=== PATIENT | female | born 1945 | race Caucasian/White ===

== ENCOUNTER 2019-01-13 18:54 | Emergency (ER) | payer MEDICARE ==
--- NOTE | 2019-01-13 19:54 | CT ---
CT BRAIN NONCONTRAST: DATE: 01/13/2019 HISTORY: 73-year-old female on anticoagulation therapy status post acute head trauma from fall. FINDINGS: There is no evidence of acute intra-axial or extra-axial hemorrhage. There is no midline shift or any other mass effect. There is no extra-axial fluid collection. Ventricles are dilated on an ex vacuo basis due to the diffuse brain atrophy. There is no evidence of obstructive hydrocephalus. Calvarium is intact. There is diffuse brain parenchymal volume loss. There are low attenuation areas in the white matter. These are nonspecific, but in a patient of this age, they are probably chronic ischemic white matter changes due to microvascular atherosclerosis. There are small old lacunar infarctions of the anterior limbs of bilateral internal capsules and adjacent basal ganglia, and left caudate hea d. IMPRESSION: 1) No acute intracranial findings. 2) advanced involutional changes and chronic ischemic white matter changes. 3) small old lacunar infarctions of bilateral corpus striatum.
[2019-01-13 20:22] LABS: #Eosinphils 0.1 thou/uL (0.0-0.7); #Lymphocytes 1.6 thou/uL (1.20-3.40); #Monocytes 0.6 thou/uL (0.11-0.59); #Neutrophils 6.5 thou/uL (1.40-6.50); %Basophils 0.5 % (0.0-1.0); %Eosinophils 1.2 % (0.0-10.0); %Lymphocytes 17.7 % (21.0-51.0); %Monocytes 6.9 % (0.0-10.0); %Neutrophils 73.8 % (42.0-75.0); Hemoglobin 11.7 g/dL (12.0-16.0); Mean Corpuscular Hemoglobin 30.5 pg (27.0-31.0); Mean Corpuscular Volume 92.5 fL (78.0-98.0); Mean Platelet Volume 7.5 fL (7.4-10.4); Platelet Count 281 thou/uL (130-400); RBC Distribution Width 12.7 % (11.5-14.5); Red Blood Cell (RBC) Count 3.82 mill/uL (4.20-5.40); White Blood Cell (WBC) Count 8.8 thou/uL (4.8-10.8)
[2019-01-13 20:42] LABS: ALT (SGPT) Less than 7 U/L (8-55); AST (SGOT) 9 U/L (5-34); Albumin 3.6 g/dL (3.4-4.8); Alkaline Phosphatase 105 U/L (40-110); Anion Gap 10 mmol/L (10-20); BUN (Urea Nitrogen) 25 mg/dL (9.8-20.1); Bilirubin, Total 0.2 mg/dL (0.2-1.2); Calc. Creatinine Clearance 0 mL/min (70-130); Carbon Dioxide 28 mmol/L (23-31); Chloride 105 mmol/L (98-107); Estimated GFR-MDRD 52; Globulin 2.5 g/dL (2.4-3.5); Glucose 204 mg/dL (83-110); Potassium 3.6 mmol/L (3.5-5.1); Protein, Total 6.1 g/dL (6.0-8.3); Sodium 139 mmol/L (136-145)
== END 2019-01-13 21:05 | disposition home or self-care (01) ==
LOC: ERS 18:54
DX: Z04.3 Encounter for examination and observation following other accident (principal); E11.9 Type 2 diabetes mellitus without complications; I10 Essential (primary) hypertension; E78.00 Pure hypercholesterolemia, unspecified; F03.90 Unspecified dementia, unspecified severity, without behavioral disturbance, psychotic disturbance, mood disturbance, and anxiety; Z79.899 Other long term (current) drug therapy; Z79.01 Long term (current) use of anticoagulants; W19.XXXA Unspecified fall, initial encounter
CPT/HCPCS: 36415; 70450; 80053; 85025; 93005

== ENCOUNTER 2019-01-24 21:46 | Emergency (ER) | payer MEDICARE ==
[2019-01-24 22:36] LABS: Bacteria/HPF None Seen HPF (None Seen); Bilirubin Negative (Negative); Blood, Urine Trace (Negative); Clarity Clear (Clear); Glucose, Urine (Dipstick) Normal (Negative); Leukocyte Negative Leu/uL (Negative); Nitrite Negative (Negative); Protein, Urine (Dipstick) 10 mg/dL (Neg-Trace); Squamous Epithelial 0-3 HPF (0-3); Urobilinogen Normal mg/dL (Less than 2)
[2019-01-24 22:48] LABS: #Basophils 0.1 thou/uL (0.0-0.2); #Eosinphils 0.1 thou/uL (0.0-0.7); #Lymphocytes 2.4 thou/uL (1.20-3.40); #Monocytes 1.2 thou/uL (0.11-0.59); #Neutrophils 12.7 thou/uL (1.40-6.50); %Basophils 0.4 % (0.0-1.0); %Eosinophils 0.8 % (0.0-10.0); %Lymphocytes 14.4 % (21.0-51.0); %Monocytes 7.3 % (0.0-10.0); %Neutrophils 77.1 % (42.0-75.0); Hemoglobin 12.8 g/dL (12.0-16.0); Mean Corpuscular HGB CONC 33.4 g/dL (32.0-36.0); Mean Corpuscular Hemoglobin 30.8 pg (27.0-31.0); Mean Corpuscular Volume 92.3 fL (78.0-98.0); Mean Platelet Volume 7.5 fL (7.4-10.4); Platelet Count 250 thou/uL (130-400); RBC Distribution Width 12.7 % (11.5-14.5); Red Blood Cell (RBC) Count 4.14 mill/uL (4.20-5.40); White Blood Cell (WBC) Count 16.5 thou/uL (4.8-10.8)
--- NOTE | 2019-01-24 22:49 | RAD ---
Exam: Right hip 2 views: HISTORY: Injury from an unwitnessed fall FINDINGS: Right hip compression screw in place. Significant bony demineralization. No evidence for dislocation. No evidence for acute fracture. Arthrosis changes. IMPRESSION: No evidence for acute fracture. Compression screws stabilize the right hip.
[2019-01-24 22:56] LABS: INR-International Normal Ratio 1.1; PTT 27.8 SEC (22.9-36.1); Prothrombin Time 13.7 SEC (12.0-14.7)
--- NOTE | 2019-01-24 22:56 | CT ---
EXAM: Brain CT scan Without contrast: HISTORY: Injury from a fall COMPARISON: 01/13/2019 FINDINGS: Small old lacunar infarcts. Atrophy and chronic white matter ischemic change. No focal mass or midline shift. No intra or extra-axial hemorrhage. The visualized sinuses and mastoids are clear of acute process. IMPRESSION: No mass or bleed or other significant acute intracranial process.
--- NOTE | 2019-01-24 22:59 | CT ---
EXAM: CT scan cervical spineWithout contrast: HISTORY: Injury from a fall COMPARISON: None FINDINGS: No evidence for acute fracture or facet dislocation. No significant malalignment. No prevertebral soft tissue swelling. Disc osteophytosis at C5-C6 and C6-C7. Bilateral carotid and vertebral artery prominent vascular calc ification. IMPRESSION: No evidence for acute fracture or facet dislocation or other significant acute process.
[2019-01-24 23:10] LABS: ALT (SGPT) 8 U/L (8-55); AST (SGOT) 12 U/L (5-34); Albumin 4.1 g/dL (3.4-4.8); Alkaline Phosphatase 131 U/L (40-110); Anion Gap 13 mmol/L (10-20); BUN (Urea Nitrogen) 28 mg/dL (9.8-20.1); Bilirubin, Total 0.2 mg/dL (0.2-1.2); Calc. Creatinine Clearance 0 mL/min (70-130); Calcium 9.6 mg/dL (7.8-10.44); Carbon Dioxide 28 mmol/L (23-31); Chloride 104 mmol/L (98-107); Estimated GFR-MDRD 48; Globulin 2.7 g/dL (2.4-3.5); Glucose 135 mg/dL (83-110); Potassium 3.9 mmol/L (3.5-5.1); Protein, Total 6.8 g/dL (6.0-8.3); Sodium 141 mmol/L (136-145)
[2019-01-24 23:27] LABS: CKMB 1.2 ng/mL (0-6.6)
--- NOTE | 2019-01-25 00:05 | RAD ---
EXAM: Chest one view: HISTORY: Injury from a fall COMPARISON: 11/13/2018 FINDINGS: Atherosclerosis of the aorta and chronic lung changes with old granulomatous disease. Bony demineralization. Healed-healing left rib fractures. Heart size: Within normal limits. Lungs: Clear of acute process. No evidence for pneumonia, pleural effusion, acute edema, or pneumothorax, or other significant acute process. IMPRESSION: No significant acute intrathoracic disease.
== END 2019-01-25 00:52 ==
LOC: ERS 21:46
DX: M25.551 Pain in right hip (principal); I10 Essential (primary) hypertension; E11.9 Type 2 diabetes mellitus without complications; E78.00 Pure hypercholesterolemia, unspecified; F03.90 Unspecified dementia, unspecified severity, without behavioral disturbance, psychotic disturbance, mood disturbance, and anxiety; Z79.01 Long term (current) use of anticoagulants; Z79.899 Other long term (current) drug therapy; W19.XXXA Unspecified fall, initial encounter
CPT/HCPCS: 36415; 51701; 70450; 71045; 72125; 80053; 81003; 81015; 82553; 84484; 85025; 85610; 85730; 93005; A4353

== ENCOUNTER 2019-03-25 20:15 | Inpatient (IN) | payer MEDICARE ==
[~2019-03-25 20:15] MED LIST: Iopamidol-370 76% 500 ML 1 ML ONE
--- NOTE | 2019-03-25 21:13 | RAD ---
EXAM: XR Hip Lt 2-3 View PROVIDED CLINICAL HISTORY: Pain status post injury COMPARISON: None FINDINGS: Comminuted, displaced intertrochanteric left proximal femoral fracture. Femoral-acetabular relationsh ip appears maintained. IMPRESSION: Comminuted, displaced intertrochanteric left proximal femoral fracture.
--- NOTE | 2019-03-25 21:14 | RAD ---
EXAM: Portable chest PROVIDED CLINICAL HISTORY: Preop COMPARISON: 01/24/2019 FINDINGS: Cardiac and mediastinal silhouette is stable in appearance. No focal consolidation, pleural fluid or pneumothorax evident with limitations due to the supine nature of the study. Conspicuous vascular calcification is again noted. IMPRESSION: No evidence for an acute cardiopulmonary process.
[2019-03-25 21:21] LABS: Mean Corpuscular Volume 88.1 fL (78.0-98.0)
[2019-03-25 21:33] LABS: INR-International Normal Ratio 1.2; PTT 30.3 SEC (22.9-36.1); Prothrombin Time 15.5 SEC (12.0-14.7)
[2019-03-25 21:33] LABS: #Eosinphils 0.2 thou/uL (0.0-0.7); #Lymphocytes 1.7 thou/uL (1.20-3.40); #Monocytes 0.7 thou/uL (0.11-0.59); #Neutrophils 9.8 thou/uL (1.40-6.50); %Basophils 0.2 % (0.0-1.0); %Eosinophils 1.5 % (0.0-10.0); %Lymphocytes 13.4 % (21.0-51.0); %Monocytes 5.6 % (0.0-10.0); %Neutrophils 79.3 % (42.0-75.0); Hemoglobin 11.6 g/dL (12.0-16.0); MDiff Complete? YES; Mean Corpuscular Hemoglobin 29.1 pg (27.0-31.0); Mean Platelet Volume 8.7 fL (7.4-10.4); Platelet Clumps SLIGHT; Platelet Morphology Comment PLT clumps seen-ADEQ; RBC Distribution Width 12.9 % (11.5-14.5); Red Blood Cell (RBC) Count 3.99 mill/uL (4.20-5.40); White Blood Cell (WBC) Count 12.4 thou/uL (4.8-10.8)
[2019-03-25] MEDS ORDERED: Morphine 4 MG/ML VIAL ONE (21:34)
[2019-03-25] MEDS ORDERED: Ondansetron PF 4 MG/2 ML Vial ONE (21:34)
[2019-03-25 21:36] LABS: ALT (SGPT) 8 U/L (8-55); AST (SGOT) 13 U/L (5-34); Albumin 3.7 g/dL (3.4-4.8); Alkaline Phosphatase 99 U/L (40-110); Anion Gap 12 mmol/L (10-20); BUN (Urea Nitrogen) 28 mg/dL (9.8-20.1); Bilirubin, Total 0.3 mg/dL (0.2-1.2); Calc. Creatinine Clearance 0 mL/min (70-130); Carbon Dioxide 27 mmol/L (23-31); Chloride 102 mmol/L (98-107); Estimated GFR-MDRD 51; Globulin 2.8 g/dL (2.4-3.5); Glucose 234 mg/dL (83-110); Potassium 4.1 mmol/L (3.5-5.1); Protein, Total 6.5 g/dL (6.0-8.3); Sodium 137 mmol/L (136-145)
--- NOTE | 2019-03-25 22:30 | CT ---
Exam: CT brain PROVIDED CLINICAL HISTORY: Fall COMPARISON: 01/24/2019 FINDINGS: The ventricular system is normal in size and morphology. No evidence for intracranial hemorrhage or mass effect. The extracranial soft tissues and osseous structures demonstrate no evidence for an acute abnormality. Chronic microvascular ischemic changes involving the cerebral white matter redemon strated. Vascular calcifications are seen. IMPRESSION: No evidence for intracranial hemorrhage or mass effect.
[2019-03-25 22:34] LABS: Bacteria/HPF None Seen HPF (None Seen); Bilirubin Negative (Negative); Blood, Urine Negative (Negative); Clarity Turbid (Clear); Glucose, Urine (Dipstick) 150 mg/dL (Negative); Leukocyte Negative Leu/uL (Negative); Nitrite Negative (Negative); Protein, Urine (Dipstick) 30 mg/dL (Neg-Trace); RBC/HPF 0-3 HPF (0-3); Squamous Epithelial 0-3 HPF (0-3); Urobilinogen Normal mg/dL (Less than 2); WBC/HPF 0-3 HPF (0-3)
--- NOTE | 2019-03-25 22:41 | CT ---
EXAM: CT abdomen and pelvis with IV contrast PROVIDED CLINICAL HISTORY: Abdominal bruising COMPARISON: None FINDINGS: The visualized lung bases are free of significant opacity. The solid abdominal organs demonstrate an unremarkable CT appearance. There is no bowel dilatation, inflammatory fat stranding, free fluid or free air apparent. There is n o evidence for appendicitis. Cazares catheter in the bladder. No regional lymph node enlargement apparent. Conspicuous multifocal atherosclerotic vascular calcific ation. Comminuted, displaced intertrochanteric left proximal femoral fracture. Postoperative change involving right hip. Remote, ununited inferior pubic ramus fracture on the right. Coronal and sagitta l spine reconstructions demonstrate no evidence for fracture or traumatic subluxation involving the lumbar spine. IMPRESSION: No evidence for an acute abnormality involving the abdomen and pelvis. Known left hip fracture.
[2019-03-26] MEDS ORDERED: Dextrose 5% in Water 1,000 ML IV PRN (00:25)
[2019-03-26] MEDS ORDERED: Dextrose 50% Abboject 50 ML SYRINGE SLOW IVP PRN (00:25)
[2019-03-26] MEDS ORDERED: Ondansetron PF 4 MG/2 ML Vial IVP PRN (00:25)
--- NOTE | 2019-03-26 01:24 | HP ---
HISTORY OF PRESENT ILLNESS: Ms. Isaacs is a 73-year-old female, who came into the ED for evaluation of left hip pain after a fall in her [facility] home. The patient has history of severe dementia and she got up by herself, lost balance and fell on her left thigh. Due to dementia, the patient is a poor historian. Report from family that patient most likely lost her balance and fell, unwitnessed. The patient has a history of atrial fibrillation, for which she uses Eliquis 5 mg every day. Upon arrival, the patient's mental status is at her baseline. Vital signs stable. She is able to move all 4 extremities. REVIEW OF SYSTEMS: Noncontributory except per HPI. PAST MEDICAL HISTORY: She has a history of diabetes, hypertension, dementia, chronic anemia, atrial fibrillation. PAST SURGICAL HISTORY: Right hip repair, right hip fixation. SOCIAL HISTORY: The patient lives in custodial. Family reports no alcohol use, no drug use. No smoking history. PHYSICAL EXAMINATION: GENERAL: The patient lying down in bed with mental status consistent with her baseline. She follow commands, wax and wanes. She is able to move all 4 extremities. No acute respiratory distress. VITAL SIGNS: Heart rate 93, blood pressure 164/81, respiratory rate 16, O2 saturation 97% on 2 L cannula, temperature 97.8. HEENT: Atraumatic. No bruising. No tender to palpation. NECK: Trachea midline. No tender to palpation. CHEST: Symmetrical. No bruising. No tender to palpation. LUNGS: Clear bilaterally. HEART: Irregular rate, irregular rhythm. ABDOMEN: Soft, nondistended, bruising and contusion of the left abdominal wall. PELVIS: Stable. EXTREMITIES: Patient able to move all extremities. Difficult to test sensation due to the patient's mental status. NEUROLOGY: Difficult testing due to patient's current altered mental status due to dementia. LABORATORY DATA: Initial workup show CT of abdomen and pelvis, no evidence for acute abdominal involvement. Brain CT scan, no evidence for intracranial hemorrhage or mass effect. Left hip x-ray shows comminuted, displaced intertrochanteric left proximal femur fracture, femoral acetabular relationship appear maintained. Chest x-ray, no evidence for acute cardiopulmonary process. Sodium 137, potassium 4.1, creatinine 1.05, glucose 234. White count 12.4, hemoglobin 11.6. ASSESSMENT: 1. Status post ground level fall. 2. Left hip fracture. 3. History of atrial fibrillation, on Eliquis 5 mg a day. 4. History of diabetes. 5. Hypertension. 6. Right knee fixation. 7. Severe dementia. PLAN: The patient will be admitted to [place] [id number] for pain control. Initiate non-pharmacological DVT prophylaxis, gastritis prophylaxis. Orthopedics was contacted. Patient will be most likely will need to hold on Eliquis for few days before she can go to the OR. Postop, the patient will work with PT/OT and the patient anticipate placement in rehabilitation facility. Job ID: [id number]
[2019-03-26] MEDS: Sodium Chloride 0.9% 1,000 ML IV SCH ×3 (05:19→19:56)
[2019-03-26] MEDS: Nicotine 7 MG PATCH TD SCH (05:19)
[2019-03-26] MEDS: Acetaminophen 500 MG TAB PO SCH ×4 (05:19→23:01)
[2019-03-26] MEDS ORDERED: Simvastatin 20 MG TAB PO SCH (09:00)
--- NOTE | 2019-03-26 09:10 | CON ---
DATE OF CONSULTATION: CHIEF COMPLAINT: Left hip pain. HISTORY OF PRESENT ILLNESS: Ms. Isaacs is a 73-year-old female, who lives in a nursing facility, [facility]. She fell yesterday evening. She got up and out of bed by herself. She has severe dementia. She does not ambulate much. She is mostly in a wheelchair. Her fall occurred in the nursing facility. She had pain in her left hip. She was taken to the emergency department. X-rays were obtained, which demonstrated a left proximal femur fracture. Of note, the patient does take Eliquis for atrial fibrillation. Her is at the bedside. She has had a previous right hip fracture, which healed without complication per family reports. REVIEW OF SYSTEMS: Positive for left hip pain. Otherwise, negative 10-point review of systems. PAST MEDICAL HISTORY: Diabetes, hypertension, dementia, chronic anemia, and atrial fibrillation. PAST SURGICAL HISTORY: Previous right femur intertrochanteric fracture. SOCIAL HISTORY: The patient lives at [facility]. She uses a walker minimally, but mostly uses a wheelchair at this point. No tobacco, alcohol, or drug use. PHYSICAL EXAMINATION: VITAL SIGNS: Temperature is 98.5, pulse is 91, respiratory rate is 20, oxygen saturation 94%, and blood pressure is 149/97. GENERAL: The patient is disoriented. She does not answer questions appropriately. She does arouse to stimulation. answers questions at the bedside. HEENT: Normocephalic, atraumatic. RESPIRATORY: Breathing comfortably. ABDOMEN: Soft, nontender, and nondistended. MUSCULOSKELETAL: The patient's left lower extremity has some shortening and pain with motion. She is lying in an externally-rotated position. Her right lower extremity is atraumatic. Upper extremities are atraumatic. Neurovascularly intact distally. IMAGING DATA: X-rays of the left hip demonstrate an intertrochanteric femur fracture with subtrochanteric extension. There is some shortening and varus alignment. IMPRESSION: Left intertrochanteric femur fracture. PLAN: At this point, the patient will need to go to the operating room for stabilization of her femur. I have reviewed other options with the patient and her family including nonoperative management. The patient minimally ambulates, so this would be an option. However, she likely would have more pain and difficulty with activities such as hygiene if her femur is not stabilized. At this point, her would like us to proceed with surgical intervention. She will be n.p.o. at midnight tonight. She will have adequate pain control. She will have DVT prophylaxis. She has an elevated risk of complication given her advanced age, dementia and medical comorbidities. We cannot proceed with surgery today because she is on Eliquis and needs an additional 24 hours off this medication. All questions have been answered. Job ID: [id number]
[2019-03-26] MEDS: Lisinopril 20 MG TAB PO SCH (09:12)
[2019-03-26] MEDS: Famotidine 20 MG TAB PO SCH (09:12)
[2019-03-26] MEDS: Gabapentin 100 MG CAP PO SCH ×3 (09:12→19:57)
[2019-03-26] MEDS: Senokot S 8.6-50 MG TAB PO SCH ×2 (09:12→19:57)
[2019-03-26] MEDS: Polyethylene Glycol 3350 17 GM Packet PO SCH (09:12)
--- NOTE | 2019-03-26 11:25 | RAD ---
Exam:2 views left femur HISTORY: Fall. Trauma. Fracture. COMPARISON: None FINDINGS: Comminuted intratrochanteric fracture with associated angulation. Bone demineralization. Vascular calcifications. IMPRESSION: Intertrochanteric fracture.
[2019-03-26] MEDS: HumaLOG 300 UNITS/3 ML VIAL SC PRN (13:35)
--- NOTE | 2019-03-26 15:21 | PRG ---
DATE OF SERVICE: 03/26/2019 SUBJECTIVE: The patient is currently on the surgical floor. She was admitted last night, status post ground level fall at her longterm facility. She has a history of significant dementia and is also on Eliquis for atrial fibrillation. Due to her Eliquis, she is unable to undergo her procedure for her left hip fracture today, but it is currently scheduled for tomorrow. Overnight, the patient reportedly had no issues. Her pain was controlled. She was able to tolerate a full liquid diet. OBJECTIVE: VITAL SIGNS: Temperature is 98.9, heart rate 91, blood pressure 186/81, respirations 16, and oxygen saturation 92% on room air. GENERAL: The patient is resting comfortably in bed. She is awake and appears to answer simple questions and follows simple commands. HEENT: Unremarkable. LUNGS: Clear bilaterally. HEART: Regular rate, irregular rhythm consistent with her atrial fibrillation. ABDOMEN: Soft and nontender. EXTREMITIES: Neurovascularly intact x4. LABORATORY DATA: There are no labs or radiographs reviewed this morning. ASSESSMENT/PLAN: 1. Status post ground level fall. 2. Left hip fracture. 3. History of atrial fibrillation, on Eliquis. 4. History of diabetes. 5. History of hypertension. 6. History of right knee fixation. 7. Severe dementia. PLAN: Plan will be to continue supportive care and make the patient n.p.o. after midnight. Postoperatively, we will begin physical and occupational therapy and discuss placement with family at that time. Job ID: [id number]
[2019-03-26] MEDS: Atorvastatin Calcium 10 MG TAB PO SCH (19:57)
[2019-03-26] MEDS ORDERED: Prevnar 13-Val Conj/PF 0.5 ML SYRINGE IM ONE (21:00)
[2019-03-26] MEDS ORDERED: FLU VACC TS2019-20(65YR UP)/PF 180 MCG/0.5 ML SYRINGE IM ONE (21:00)
[2019-03-27] MEDS: hydrALAZINE 20 MG/ML VIAL SLOW IVP PRN (03:44)
[2019-03-27] MEDS: Acetaminophen 500 MG TAB PO SCH (05:16)
[2019-03-27] MEDS: Nicotine 7 MG PATCH TD SCH (05:16)
[2019-03-27] MEDS: traMADol HCl 50 MG TAB PO PRN (05:33)
[2019-03-27] MEDS ORDERED: Phenylephrine HCL 10 MG/ML VIAL ONE (08:01)
[2019-03-27] MEDS ORDERED: Fentanyl 100 MCG/2 ML VIAL ONE (08:13)
[2019-03-27] MEDS: Famotidine 20 MG TAB PO SCH (09:04)
[2019-03-27] MEDS: CEFAZOLIN 2 GM in Premix Bag 1 BAG IVPB SCH ×3 (09:04→15:45)
[2019-03-27] MEDS: Senokot S 8.6-50 MG TAB PO SCH ×2 (09:05→20:35)
[2019-03-27] MEDS: Polyethylene Glycol 3350 17 GM Packet PO SCH (09:05)
[2019-03-27] MEDS: Lisinopril 20 MG TAB PO SCH (09:05)
[2019-03-27] MEDS: Gabapentin 100 MG CAP PO SCH ×3 (09:05→20:35)
[2019-03-27] MEDS ORDERED: Ondansetron HCl/PF 4 MG/2 ML Vial IVP PRN (09:11)
[2019-03-27] MEDS ORDERED: Promethazine HCl 25 MG/ML VIAL SLOW IVP PRN (09:11)
[2019-03-27] MEDS ORDERED: Promethazine HCl 25 MG/ML VIAL IM PRN (09:11)
[2019-03-27] MEDS ORDERED: PROPOFOL 200 MG/20 ML VIAL ONE (10:36)
[2019-03-27] MEDS ORDERED: Rocuronium Bromide 10 MG/ML (10ML VIAL) ONE (10:36)
[2019-03-27] MEDS ORDERED: Ondansetron PF 4 MG/2 ML Vial ONE (10:36)
[2019-03-27] MEDS ORDERED: Lidocaine 1% PF 5 ML VIAL ONE (10:36)
[2019-03-27] MEDS ORDERED: Glycopyrrolate 0.2 MG/ML 5 ML SYRINGE ONE (10:36)
--- NOTE | 2019-03-27 11:40 | RAD ---
Exam: Left hip 2 views: HISTORY: Status post ORIF, left intertrochanteric nail placement FINDINGS: Intertrochanteric nail is placed stabilizing an intertrochanteric fracture with improved position and alignment. No new periprostatic fracture. IMPRESSION: Intraoperative nail placement fixating intertrochanteric fracture.
[2019-03-27] MEDS: Acetaminophen 1,000 MG in Premix Bag 1 BAG IVPB SCH ×3 (12:03→23:24)
[2019-03-27] MEDS: HumaLOG 300 UNITS/3 ML VIAL SC PRN ×3 (12:04→20:41)
[2019-03-27 14:30] LABS: #Lymphocytes 1.6 thou/uL (1.20-3.40); #Monocytes 1.4 thou/uL (0.11-0.59); #Neutrophils 9.1 thou/uL (1.40-6.50); %Basophils 0.3 % (0.0-1.0); %Lymphocytes 12.9 % (21.0-51.0); %Monocytes 11.4 % (0.0-10.0); %Neutrophils 75.3 % (42.0-75.0); Hemoglobin 9.2 g/dL (12.0-16.0); Mean Corpuscular HGB CONC 33.2 g/dL (32.0-36.0); Mean Corpuscular Hemoglobin 29.7 pg (27.0-31.0); Mean Corpuscular Volume 89.3 fL (78.0-98.0); RBC Distribution Width 13.3 % (11.5-14.5); White Blood Cell (WBC) Count 12.1 thou/uL (4.8-10.8)
[2019-03-27 14:42] LABS: MDiff Complete? YES; Platelet Clumps MODERATE; Platelet Morphology Comment PLT clumps seen-ADEQ; Polychromasia SLIGHT = 2-3 cells (100X) (0-2/hpf)
[2019-03-27 14:49] LABS: Anion Gap 14 mmol/L (10-20); BUN (Urea Nitrogen) 13 mg/dL (9.8-20.1); Calc. Creatinine Clearance 50 mL/min (70-130); Calcium 8.3 mg/dL (7.8-10.44); Carbon Dioxide 25 mmol/L (23-31); Chloride 103 mmol/L (98-107); Estimated GFR-MDRD 72; Glucose 99 mg/dL (83-110); Magnesium 1.6 mg/dL (1.6-2.6); Phosphorus 2.8 mg/dL (2.3-4.7); Potassium 3.5 mmol/L (3.5-5.1); Sodium 138 mmol/L (136-145)
[2019-03-27] MEDS: Ketorolac Tromethamine 30 MG/ML VIAL IVP SCH ×3 (17:52→23:25)
[2019-03-27] MEDS: Sodium Chloride 0.9% 1,000 ML IV SCH (17:53)
[2019-03-27] MEDS: Atorvastatin Calcium 10 MG TAB PO SCH (20:35)
[2019-03-27] MEDS ORDERED: Gabapentin 300 MG CAP PO SCH (22:40)
--- NOTE | 2019-03-27 23:07 | PRG ---
DATE OF SERVICE: 03/27/2019 SUBJECTIVE: The patient remains on the surgical floor. The patient was seen this evening during evening rounds, resting comfortably. The patient does have a history of significant dementia. The patient's daughter states that she was agitated earlier with her diaper change. The nurse also reports the patient has had a decreased intake and has only been eating about 25% of her meals. The patient is postop day #0 for repair of her left hip fracture. OBJECTIVE: VITAL SIGNS: Stable, afebrile. GENERAL: Elderly female, resting comfortably in bed, sleeping, in no respiratory distress. LUNGS: Good inspiratory and expiratory effort. No acute distress. ASSESSMENT: 1. Status post ground level fall. 2. Left hip fracture postop day #0, status post repair. 3. History of atrial fibrillation, on Eliquis. 4. History of diabetes. 5. Hypertension. 6. Right knee fixation. 7. Severe dementia. PLAN: Continue supportive care. We will add Ensure to patient's diet as she has not been eating much. We will continue IV fluids overnight as the patient has not drinking much either. We will have Physical Therapy work with the patient tomorrow. Job ID: [id number] [facility]
[2019-03-28] MEDS: CEFAZOLIN 2 GM in Premix Bag 1 BAG IVPB SCH ×4 (00:12→16:36)
[2019-03-28] MEDS: Acetaminophen 1,000 MG in Premix Bag 1 BAG IVPB SCH ×2 (05:23→11:46)
[2019-03-28] MEDS: Sodium Chloride 0.9% 1,000 ML IV SCH ×2 (05:23→16:39)
[2019-03-28] MEDS: Ketorolac Tromethamine 30 MG/ML VIAL IVP SCH (05:23)
[2019-03-28] MEDS: Nicotine 7 MG PATCH TD SCH (05:33)
[2019-03-28] MEDS: HumaLOG 300 UNITS/3 ML VIAL SC PRN ×3 (06:30→16:36)
[2019-03-28 06:35] LABS: #Basophils 0.1 thou/uL (0.0-0.2); #Eosinphils 0.1 thou/uL (0.0-0.7); #Lymphocytes 1.4 thou/uL (1.20-3.40); #Monocytes 0.9 thou/uL (0.11-0.59); #Neutrophils 6.1 thou/uL (1.40-6.50); %Basophils 0.8 % (0.0-1.0); %Eosinophils 1.7 % (0.0-10.0); %Lymphocytes 16.1 % (21.0-51.0); %Monocytes 10.2 % (0.0-10.0); %Neutrophils 71.3 % (42.0-75.0); Hemoglobin 8.2 g/dL (12.0-16.0); MDiff Complete? YES; Mean Corpuscular HGB CONC 32.8 g/dL (32.0-36.0); Mean Corpuscular Hemoglobin 29.6 pg (27.0-31.0); Mean Corpuscular Volume 90.3 fL (78.0-98.0); Platelet Clumps MARKED; RBC Distribution Width 13.3 % (11.5-14.5); RBC Morphology Normal; Red Blood Cell (RBC) Count 2.78 mill/uL (4.20-5.40); White Blood Cell (WBC) Count 8.5 thou/uL (4.8-10.8)
[2019-03-28 06:48] LABS: Anion Gap 14 mmol/L (10-20); BUN (Urea Nitrogen) 16 mg/dL (9.8-20.1); Calc. Creatinine Clearance 44 mL/min (70-130); Calcium 8.2 mg/dL (7.8-10.44); Carbon Dioxide 21 mmol/L (23-31); Chloride 106 mmol/L (98-107); Estimated GFR-MDRD 62; Glucose 167 mg/dL (83-110); Magnesium 1.6 mg/dL (1.6-2.6); Phosphorus 4.1 mg/dL (2.3-4.7); Potassium 4.1 mmol/L (3.5-5.1); Sodium 137 mmol/L (136-145)
[2019-03-28] MEDS ORDERED: Magnesium Sulfate 3 GM in Sodium Chloride 0.9% 250 ML 250 ML IVPB SCH (07:45)
[2019-03-28] MEDS: Lisinopril 20 MG TAB PO SCH (08:44)
[2019-03-28] MEDS: Famotidine 20 MG TAB PO SCH (08:49)
[2019-03-28] MEDS: Senokot S 8.6-50 MG TAB PO SCH ×2 (08:49→20:06)
[2019-03-28] MEDS: Ferrous Sulfate 325 MG TAB PO SCH (08:50)
[2019-03-28] MEDS: Polyethylene Glycol 3350 17 GM Packet PO SCH (08:50)
[2019-03-28] MEDS: Amiodarone 200 MG TAB PO SCH ×2 (08:50→20:05)
--- NOTE | 2019-03-28 12:24 | PRG ---
DATE OF SERVICE: 03/28/2019 SUBJECTIVE: The patient remains on the surgical floor. She is status post ground level fall, in which she sustained a left hip fracture. She has undergone operative intervention of same. She tolerated it well. She did have a delay in her surgery due to being on Eliquis for atrial fibrillation. Overnight, she had no issues. This morning, she began working with Physical Therapy. OBJECTIVE: VITAL SIGNS: Temperature is 98.1, heart rate 76, blood pressure 105/68, respirations 16, and oxygen saturation 94% on room air. GENERAL: The patient is currently sitting at the side of bed. She appears comfortable, in no distress. She is following the therapist's commands and is interacting appropriately. HEENT: Unremarkable. LUNGS: Clear to auscultation bilaterally. HEART: Regular rate with irregular rhythm consistent with her atrial fibrillation. ABDOMEN: Soft, nontender. EXTREMITIES: Neurovascularly intact x4. Her postop dressing is clean, dry, and intact. LABORATORY FINDINGS: White blood cell count 8.5, hemoglobin 8.2, hematocrit 25.1, and platelets are not reported. Sodium 137, potassium 4.1, chloride 106, CO2 of 21, BUN 16, creatinine 0.89, glucose 167, magnesium 1.6, and phosphorus 4.1. IMAGING STUDIES: There are no radiographs reviewed this morning. ASSESSMENT AND PLAN: 1. Status post ground level fall. 2. Status post open reduction and internal fixation of left hip fracture. 3. History of atrial fibrillation, on Eliquis. 4. History of diabetes. 5. History of hypertension. 6. History of severe dementia. Plan will be to continue supportive care, encourage physical and occupational therapy, and discuss placement once family is available. We will replace her magnesium this morning also. Job ID: [id number]
[2019-03-28] MEDS ORDERED: Sodium Chloride 0.9% 500 ML IV SCH (12:30)
[2019-03-28] MEDS ORDERED: Hydrocortisone Sod Succ/PF 100 mg/2 ml Vial IVP SCH (16:30)
[2019-03-28] MEDS: Atorvastatin Calcium 10 MG TAB PO SCH (20:06)
[2019-03-29] MEDS: CEFAZOLIN 2 GM in Premix Bag 1 BAG IVPB SCH ×3 (00:20→15:36)
[2019-03-29] MEDS: Hydrocortisone Sod Succ/PF 100 mg/2 ml Vial IVP SCH ×3 (00:20→15:35)
[2019-03-29] MEDS ORDERED: Furosemide 20 MG/2 ML VIAL SLOW IVP SCH (04:45)
[2019-03-29 05:50] LABS: Band 1 % (5-11); Hemoglobin 9.6 g/dL (12.0-16.0); Hypochromia SLIGHT = 6-15 cells (100X) (0-5/hpf); Lymphocytes 4 % (21-51); MDiff Complete? YES; Mean Corpuscular HGB CONC 32.8 g/dL (32.0-36.0); Mean Corpuscular Hemoglobin 29.8 pg (27.0-31.0); Monocytes 2 % (0-10); Neutrophil 93 % (42-75); Platelet Clumps SLIGHT; RBC Distribution Width 13.3 % (11.5-14.5); Red Blood Cell (RBC) Count 3.22 mill/uL (4.20-5.40); White Blood Cell (WBC) Count 11.1 thou/uL (4.8-10.8)
[2019-03-29 05:57] LABS: Anion Gap 19 mmol/L (10-20); BUN (Urea Nitrogen) 24 mg/dL (9.8-20.1); Calc. Creatinine Clearance 33 mL/min (70-130); Calcium 8.7 mg/dL (7.8-10.44); Carbon Dioxide 17 mmol/L (23-31); Chloride 104 mmol/L (98-107); Estimated GFR-MDRD 45; Glucose 333 mg/dL (83-110); Magnesium 2.2 mg/dL (1.6-2.6); Potassium 4.2 mmol/L (3.5-5.1); Sodium 136 mmol/L (136-145)
[2019-03-29] MEDS: HumaLOG 300 UNITS/3 ML VIAL SC PRN ×4 (05:58→22:00)
[2019-03-29] MEDS: Nicotine 7 MG PATCH TD SCH (05:59)
[2019-03-29] MEDS: Polyethylene Glycol 3350 17 GM Packet PO SCH (08:59)
[2019-03-29] MEDS: Lisinopril 20 MG TAB PO SCH (09:00)
[2019-03-29] MEDS: Famotidine 20 MG TAB PO SCH (09:00)
[2019-03-29] MEDS: Apixaban 5 MG TAB PO SCH (09:00)
[2019-03-29] MEDS: Senokot S 8.6-50 MG TAB PO SCH ×2 (09:00→21:13)
[2019-03-29] MEDS: Ferrous Sulfate 325 MG TAB PO SCH (09:00)
[2019-03-29] MEDS: Amiodarone 200 MG TAB PO SCH ×2 (09:00→21:12)
--- NOTE | 2019-03-29 10:30 | PRG ---
DATE OF SERVICE: 03/29/2019 SUBJECTIVE: Stefany is a 73-year-old female, postop day 2 from a left trochanteric nail fixation for intertrochanteric fracture. She is doing relatively well, sitting up, visiting with family members this morning. OBJECTIVE: VITAL SIGNS: Temperature 98.3, pulse 84, and respiratory rate 18 and unlabored. NEUROLOGIC: She is alert, responsive and appropriate with examiner. Short-term memory is poor. Remote memory also poor secondary to dementia. Incision is clean. No malrotation. No shortening of the left lower extremity. No strike through. IMPRESSION: A 73-year-old female, postop day #2, left hip short trochanteric nail fixation for intertrochanteric fracture. PLAN: Continue current care and placement per Trauma Team. Job ID: [id number]
--- NOTE | 2019-03-29 11:20 | OP ---
DATE OF PROCEDURE: 03/27/2019 PREOPERATIVE DIAGNOSIS: A left intertrochanteric hip fracture. POSTOPERATIVE DIAGNOSIS: A left intertrochanteric hip fracture. LOAN INTERVIEWER: Denzel Samuel PA-C ANESTHESIOLOGIST: Edilia Tapia MD ANESTHESIA: The patient received a general endotracheal intubation. PROCEDURE PERFORMED: Cephalomedullary nailing of left intertrochanteric hip fracture. ESTIMATED BLOOD LOSS: 150 mL. TOURNIQUET TIME: None. IMPLANTS: Synthes TFNA size 12 mm x 170 mm, 90 mm compression TFNA fenestrated screw and a 5 mm distal locking screw, 5 x 34. ANTIBIOTICS: Ancef 2 g. COMPLICATIONS: None. HISTORY OF PRESENT ILLNESS: Ms. Isaacs is a 73-year-old female, who has currently dementia, had a recent fall and broke her right hip, had a DHS placed. I discussed with family, the risks and benefits of a left intertrochanteric nailing for her left hip fracture. I discussed given the patient's current mental status and her ambulatory status, I am concerned about her walking in the future. I am also concerned about her longevity of her life. I discussed the risk of confusion postoperatively. The patient will need transfer back to the skilled once cleared. She will be started on her Eliquis. The patient's risks are pain, scar, bleeding, infection, damage to vital structures, decreased range or motion or strength, need for further surgeries, failure of procedure despite surgical intervention, loss of life or limb. The patient's understands risks and benefits and elected to proceed. DESCRIPTION OF PROCEDURE: Time-out was performed designating the patient's left lower extremity as the operative site based on site, consents, and marking. The patient was placed on fracture table. Bony prominences well padded. The patient had her fracture reduced under fluoroscopic guidance. We then prepped and draped the left lower extremity After timeout, antibiotics received, the patient had an incision made over the trochanter, sectioned down through the IT band by dissection down to the trochanter. We used a guide pin, placed it under fluoroscopic guidance on the AP and lateral positions likely in the posterior 3rd. We then placed our nail, placed it to a size 12 nail, passed it down the length of bone, placed our center-center screw on AP and lateral radiographs, measured about 92, placed a 90 mm screw. We locked the gate and came off and half turned , moved distally, drilled bicortically, and placed a 34 mm 5-0 locking screw distally, washed, closed with 0, 2-0, and brett. The patient will be weightbear as tolerated, need transfer back and admitted back to the Trauma Service. Job ID: [id number] [facility]
[2019-03-29] MEDS: Furosemide 40 MG/4 ML VIAL ONE ×2 (12:47→13:10)
--- NOTE | 2019-03-29 13:05 | RAD ---
XR Chest 1 View Portable HISTORY: Shortness of breath COMPARISON: 03/25/2019 FINDINGS: The heart size is normal. The aorta is tortuous. There is been interval development of pulm onary vascular congestion. The lungs are well expanded without focal areas of consolidation, pneumothorax or large pleural effusions. IMPRESSION: Pulmonary vascular congestion, new since 03/25/2019.
[2019-03-29] MEDS ORDERED: Furosemide 40 MG/4 ML VIAL ONE (13:21)
[2019-03-29] MEDS ORDERED: Aspirin 81 mg Enteric Coated Tablet PO SCH (16:00)
[2019-03-29 16:48] LABS: Troponin I 3.928 ng/mL (< 0.028)
[2019-03-29 19:36] LABS: Troponin I 4.131 ng/mL (< 0.028)
[2019-03-29] MEDS: Atorvastatin Calcium 10 MG TAB PO SCH (21:13)
[2019-03-29] MEDS: traMADol HCl 50 MG TAB PO PRN (21:13)
[2019-03-29] MEDS: Melatonin 3 MG TAB PO PRN (21:14)
[2019-03-30] MEDS: Hydrocortisone Sod Succ/PF 100 mg/2 ml Vial IVP SCH ×3 (00:33→16:15)
[2019-03-30] MEDS: HumaLOG 300 UNITS/3 ML VIAL SC PRN ×3 (00:34→18:00)
[2019-03-30] MEDS: CEFAZOLIN 2 GM in Premix Bag 1 BAG IVPB SCH ×2 (00:35→07:58)
[2019-03-30 04:56] LABS: Hemoglobin 8.2 g/dL (12.0-16.0); Lymphocytes 9 % (21-51); MDiff Complete? YES; Mean Corpuscular HGB CONC 32.2 g/dL (32.0-36.0); Mean Corpuscular Hemoglobin 29.3 pg (27.0-31.0); Monocytes 6 % (0-10); Neutrophil 85 % (42-75); Platelet Morphology Comment PLT clumps seen-ADEQ; RBC Distribution Width 13.4 % (11.5-14.5); White Blood Cell (WBC) Count 10.9 thou/uL (4.8-10.8)
[2019-03-30 05:04] LABS: Anion Gap 14 mmol/L (10-20); BUN (Urea Nitrogen) 27 mg/dL (9.8-20.1); Calc. Creatinine Clearance 46 mL/min (70-130); Calcium 8.8 mg/dL (7.8-10.44); Carbon Dioxide 21 mmol/L (23-31); Chloride 106 mmol/L (98-107); Estimated GFR-MDRD 66; Glucose 40 mg/dL (83-110); Phosphorus 2.5 mg/dL (2.3-4.7); Potassium 3.5 mmol/L (3.5-5.1); Sodium 137 mmol/L (136-145)
[2019-03-30] MEDS ORDERED: Dextrose 50 % In Water 50 ML SYRINGE ONE (05:08)
[2019-03-30] MEDS: Nicotine 7 MG PATCH TD SCH (06:01)
--- NOTE | 2019-03-30 07:07 | CON ---
DATE OF CONSULTATION: 03/29/2019 REASON FOR CONSULTATION: ST-segment elevation. HISTORY OF PRESENT ILLNESS: Ms. Isaacs is a 73-year-old, who is a patient Dr. Satya Clark. She was seen recently for hip fracture several months ago. She had recurrent hip fracture. She was pinned over the weekend. This afternoon, she had increased shortness of breath with hypotension. She was asymptomatic. Enzymes were drawn in addition to EKG. She was given Lasix. During my visit, she was resting comfortably with no symptoms of chest pain or pressure. She does have advanced dementia. was at bedside. Her EKG did suggest ST-segment elevation in the lead III suggesting inferior myocardial infarction in addition to lead aVF although none is prominent. She also had Q-waves present. She has no previous history of underlying coronary artery disease. PAST MEDICAL HISTORY: Atrial fibrillation, diabetes mellitus, hypertension, advanced dementia, hyperlipidemia, hip fracture. HOME MEDICATIONS: 1. MiraLAX. 2. Ultram. 3. Extra Strength Tylenol. 4. Melatonin. 5. Iron. 6. Zocor. 7. . 8. Lisinopril. 9. Eliquis. 10. Amiodarone. REVIEW OF SYSTEMS: A 10-point review of systems cannot be obtained. She has advanced dementia. PHYSICAL EXAMINATION: VITAL SIGNS: Blood pressure 121/60, pulse 75, temperature 97.3. GENERAL: She is not oriented to time, person, or place. NEUROLOGIC: The patient is alert and oriented x3 with no focal neurologic deficits. HEENT: Sclerae without icterus. Mouth has moist mucous membranes with normal pallor. NECK: No JVD. Carotid upstroke brisk. No bruits bilaterally. LUNGS: Clear to auscultation with unlabored respirations. BACK: No scoliosis or kyphosis. CARDIAC: Regular rate and rhythm with normal S1 and S2. No S3 or S4 noted. No significant rubs, murmurs, thrills, or gallops noted throughout the precordium. PMI is not displaced. There is no parasternal heave. ABDOMEN: Soft, nontender, nondistended. No peritoneal signs present. No hepatosplenomegaly. No abnormal striae. EXTREMITIES: 2+ femoral and 2+ dorsalis pedis pulses. No cyanosis, clubbing, or edema. SKIN: No gross abnormalities. PERTINENT LABS: Hemoglobin 9.6, white blood cell count 10.2 creatinine 1.18 and GFR 45. BNP of 1999. Echo Doppler shows LVEF 30% to 35%. The inferior wall appears thin and severely hypokinetic. When compared to previous echo, her LVEF was markedly diminished. The inferior wall did appear to have hypokinesis in November. She also appears to have severe aortic stenosis with valve area planimetry of 1.0. IMPRESSION: 1. ST-segment elevation myocardial infarction. 2. Advanced dementia. 3. Recent hip fracture status post repair. RECOMMENDATIONS: I had multiple conversation with the as well as their son on how to proceed. We discussed an aggressive versus conservative approach. My initial thought is patient's symptoms and EKG changes are likely from an occluded right coronary artery. Given her echo findings in November and echo findings today and when she developed hypotension, which may be related to multivessel disease, she had ST-segment elevation. Her repeat EKG suggested significant improvement in ST-segment elevation. She has remained asymptomatic during the entire episode. After much discussion, it was decided to proceed with a conservative approach. They are not interested in proceeding with a more aggressive approach including coronary angiography. At this point, I would not treat with Lovenox given a platelet count of 40,000 and the fact that she is on Eliquis. Continue to monitor blood pressure and heart rate closely. Transfer to telemetry monitoring for close observation. Job ID: [id number]
[2019-03-30] MEDS ORDERED: Potassium Phosphate 30 MMOL in Sodium Chloride 0.9% 100 ML IVPB SCH (08:00)
--- NOTE | 2019-03-30 09:04 | PRG ---
DATE OF SERVICE: 03/30/2019 SUBJECTIVE: Stefany is a 73-year-old female, postop day 3 from a left hip trochanteric nail fixation secondary to intertrochanteric fracture. She is doing relatively well. Her baseline dementia still persists. OBJECTIVE: Her incisions are closed and intact, but there is some drainage and this has been occluded with Tegaderm. There are removed and informed nursing staff to clean these with alcohol daily and re-dress with dry 4x4s. IMPRESSION: A 73-year-old female postop day 3 left trochanteric nail fixation. PLAN: Dressing changes as described above. Recheck tomorrow. Job ID: [id number]
[2019-03-30] MEDS: Apixaban 5 MG TAB PO SCH (09:45)
[2019-03-30] MEDS: Amiodarone 200 MG TAB PO SCH ×2 (09:45→20:49)
[2019-03-30] MEDS: Famotidine 20 MG TAB PO SCH (09:45)
[2019-03-30] MEDS: Aspirin 81 mg Enteric Coated Tablet PO SCH (09:45)
[2019-03-30] MEDS: Lisinopril 20 MG TAB PO SCH (09:46)
[2019-03-30] MEDS: Ferrous Sulfate 325 MG TAB PO SCH (09:46)
[2019-03-30] MEDS: Polyethylene Glycol 3350 17 GM Packet PO SCH (09:48)
[2019-03-30] MEDS: Senokot S 8.6-50 MG TAB PO SCH ×2 (09:51→20:50)
--- NOTE | 2019-03-30 11:27 | PRG ---
DATE OF SERVICE: 03/30/2019 SUBJECTIVE: Ms. Isaacs is a 73-year-old woman with history of advanced senile dementia of Alzheimer's type. The patient is postoperative day #3, status post IM nailing of left intertrochanteric femur fracture. She developed a postoperative ST-elevation myocardial infarction, which the patient's family's request of nonoperative and conservative management is in progress. Meanwhile, the patient has been asymptomatic. She is awake and alert, but confused at baseline. She is tolerating diet. She is having bowel movements. OBJECTIVE: VITAL SIGNS: Currently includes blood pressure 150/73, pulse 87, respiratory rate 18, temperature 97.3 degrees Fahrenheit, and oxygen saturation 95% on room air. HEART: Reveals irregular rate and rhythm. LUNGS: Clear to auscultation bilaterally. Breathing, regular and unlabored. ABDOMEN: Soft, nontender, and nondistended. NEUROLOGIC: Reveals no focal deficits present. LABORATORY FINDINGS: Includes a CBC with 10,900 white blood cells, hemoglobin and hematocrit 8.2 and 25.4 respectively. Metabolic profile; sodium 137, potassium 3.5, chloride is 106, bicarb is 21, BUN is 27, creatinine 0.84, and glucose 196. IMPRESSION: 1. Postop day #3, status post IM nailing of left hip fracture. 2. Postoperative ST-elevation myocardial infarction, stable. PLAN: 1. Continue physical and occupational therapy. 2. Anticipate discharge back to group home facility when okay with Cardiology. 3. Above findings and plan discussed with the patient's at bedside. He indicates understanding of information given. Job ID: [id number]
[2019-03-30] MEDS: Atorvastatin Calcium 10 MG TAB PO SCH (20:49)
--- NOTE | 2019-03-30 23:13 | PRG ---
DATE OF SERVICE: 03/30/2019 SUBJECTIVE: The patient was seen this evening, lying in bed with no signs of acute distress. She has a history of dementia, but was cooperative and following commands appropriately. The patient's in room reported that he had no questions and no concerns. OBJECTIVE: VITAL SIGNS: Temperature 98.1, pulse 88, respirations 18, oxygen saturation 97% on room air, blood pressure 139/79. GENERAL: Well-appearing elderly female, lying in bed with no signs of acute distress. PULMONARY: Equal chest rise and fall. No signs of acute respiratory distress. ASSESSMENT: 1. Status post ground level fall, on Eliquis. 2. Left hip fracture, status post repair. 3. Postoperative ST elevation myocardial infarction, stable. 4. Acute congestive heart failure exacerbation, improved. 5. History of dementia, diabetes, hypertension, chronic anemia, atrial fibrillation, and right hip fracture. PLAN: Continue current diet and pain regimen. Continue physical and occupational therapy. Continue home medications as clinically indicated. Continue Eliquis and aspirin. She is pending placement at a residential facility when deemed appropriate by Cardiology. Job ID: [id number]
[2019-03-31] MEDS: Hydrocortisone Sod Succ/PF 100 mg/2 ml Vial IVP SCH ×2 (00:24→08:25)
[2019-03-31] MEDS: Melatonin 3 MG TAB PO PRN ×2 (00:28→21:28)
[2019-03-31] MEDS: traMADol HCl 50 MG TAB PO PRN (02:50)
[2019-03-31] MEDS ORDERED: Morphine 2 MG/ML SYRINGE SLOW IVP SCH (05:30)
[2019-03-31] MEDS: Nicotine 7 MG PATCH TD SCH (05:32)
[2019-03-31] MEDS: HumaLOG 300 UNITS/3 ML VIAL SC PRN ×2 (06:43→17:32)
[2019-03-31] MEDS ORDERED: Potassium Phosphate 30 MMOL in Sodium Chloride 0.9% 250 ML 250 ML IVPB SCH (08:00)
[2019-03-31] MEDS: Aspirin 81 mg Enteric Coated Tablet PO SCH (08:26)
[2019-03-31] MEDS: Apixaban 5 MG TAB PO SCH (08:26)
[2019-03-31] MEDS: Amiodarone 200 MG TAB PO SCH ×2 (08:26→09:03)
[2019-03-31] MEDS: Famotidine 20 MG TAB PO SCH (08:26)
[2019-03-31] MEDS: Polyethylene Glycol 3350 17 GM Packet PO SCH (08:27)
[2019-03-31] MEDS: Senokot S 8.6-50 MG TAB PO SCH ×2 (08:27→21:28)
[2019-03-31] MEDS: Ferrous Sulfate 325 MG TAB PO SCH (08:27)
[2019-03-31] MEDS: Lisinopril 20 MG TAB PO SCH (08:27)
[2019-03-31] MEDS: hydrALAZINE 20 MG/ML VIAL SLOW IVP PRN ×2 (11:46→15:55)
[2019-03-31] MEDS ORDERED: traMADol HCl 50 MG TAB PO SCH (15:15)
--- NOTE | 2019-03-31 17:05 | PRG ---
DATE OF SERVICE: 03/31/2019 SUBJECTIVE: The patient was seen this morning during rounds on the telemetry floor. The patient is awake and alert, in no distress. The patient is postoperative day #4, status post IM nailing of the left intertrochanteric femur fracture. The patient has a history of advanced senile dementia of Alzheimer's type. The patient is currently eating her breakfast. The patient developed a postoperative ST-elevation myocardial infarction, in which the patient's family requested nonoperative and conservative management. The patient continues to be asymptomatic. The patient denies any chest pain or shortness of breath. The patient did have some agitation overnight. OBJECTIVE: VITAL SIGNS: Blood pressure 163/87, pulse 86, respirations 18, SpO2 of 94% on room air, and temperature 97.7. GENERAL: Elderly female, awake and alert, confused at baseline. RESPIRATORY: Equal chest rise and fall. Bilateral breath sounds clear. CARDIAC: Regular rate and regular rhythm. ABDOMEN: Soft, nontender, and nondistended. EXTREMITIES: Left hip dressing is clean, dry, and intact. LABORATORY DATA: There are no new labs to evaluate today. DIAGNOSTIC STUDIES: There are no new diagnostics. IMPRESSION: 1. Postoperative day #4 status post intramedullary nailing of the left hip fracture. 2. Postoperative ST-elevation myocardial infarction, stable. PLAN: Continue physical and occupational therapy. We will discontinue hydrocortisone as the patient's blood pressure has been elevated. We will increase the patient's lisinopril dose. The patient is pending placement back to [facility] facility. Cardiology okay with the patient being discharged. The patient was examined by Dr. Jose during morning rounds. The plan was discussed with the patient and family who agreed. Job ID: [id number]
[2019-03-31] MEDS: Acetaminophen 500 MG TAB PO SCH (17:33)
[2019-03-31] MEDS: Atorvastatin Calcium 10 MG TAB PO SCH (21:28)
--- NOTE | 2019-04-01 00:28 | PRG ---
DATE OF SERVICE: 03/31/2019 SUBJECTIVE: The patient was seen this evening during rounds. She was resting comfortably and asleep at the time of my evaluation. She had no acute events per nursing and there was no signs of acute distress. OBJECTIVE: VITAL SIGNS: Temperature 98.3, pulse 91, respirations 16, oxygen saturation 97% on room air, blood pressure 160/70. GENERAL: Well-appearing elderly female, lying in bed with no signs of acute distress. PULMONARY: Equal chest rise and fall. No signs of acute respiratory distress. ASSESSMENT: 1. Status post ground level fall, on Eliquis. 2. Left hip fracture, status post repair, now postop day 4. 3. Postoperative ST-elevation myocardial infarction in the inferior leads. 4. History of dementia, diabetes, hypertension, chronic anemia, atrial fibrillation, and right hip fracture. PLAN: Continue current diet and pain regimen. Continue physical and occupational therapy. Continue Eliquis. Hydrocortisone was discontinued today. The patient's home lisinopril was also increased. Continue to monitor hypertension. The patient is pending placement at a [facility] facility. She is ready for discharge at this time. Job ID: [id number]
[2019-04-01] MEDS: Acetaminophen 500 MG TAB PO SCH ×3 (01:20→13:10)
[2019-04-01] MEDS: hydrALAZINE 20 MG/ML VIAL SLOW IVP PRN (04:12)
[2019-04-01] MEDS: Nicotine 7 MG PATCH TD SCH (06:17)
[2019-04-01] MEDS ORDERED: Carvedilol 3.125 MG TAB PO SCH ×2 (08:45→17:00)
[2019-04-01] MEDS ORDERED: Potassium Chloride 20 MEQ TAB PO SCH (08:45)
--- NOTE | 2019-04-01 08:58 | PRG ---
DATE OF SERVICE: 04/01/2019 SUBJECTIVE: Shital is awake and alert today. She is oriented x1. She does apparently know her . She does not know where she is or what year it is, but she reorients easily. OBJECTIVE: VITAL SIGNS: Her blood pressure 134/78 and pulse 90. She had a blood pressure this morning 204/96 and 135/71 today. LUNGS: Clear. CARDIAC: Normal S1 and normal S2. ABDOMEN: Soft and nontender. EXTREMITIES: No edema. ASSESSMENT: 1. Status post myocardial infarction probably multivessel coronary artery disease. 2. Probably old inferior infarct with persistent ST-elevation compatible with area of akinesis of the inferior wall. 3. Severe dementia. 4. Hypertension, labile. 5. Anemia. PLAN: 1. We will check iron level and CBC before she leaves today, if she has low consideration for giving her intravenous iron. 2. She is on amiodarone in view of the atrial fibrillation. 3. Carvedilol 3.125 mg twice a day. 4. Lisinopril 40 mg a day. 5. We will add torsemide 10 mg a day to help with blood pressure. 6. Potassium 10 mEq a day. 7. Okay to me to be transferred back to the detention. Family wishes [id number] status. Job ID: [id number]
[2019-04-01] MEDS ORDERED: Torsemide 10 MG TAB PO SCH (09:00)
[2019-04-01] MEDS ORDERED: Apixaban 5 MG TAB PO SCH (09:00)
[2019-04-01] MEDS ORDERED: Lisinopril 20 MG TAB PO SCH (09:00)
[2019-04-01] MEDS: Amiodarone 200 MG TAB PO SCH (09:35)
[2019-04-01] MEDS: Aspirin 81 mg Enteric Coated Tablet PO SCH (09:36)
[2019-04-01] MEDS: Famotidine 20 MG TAB PO SCH (09:36)
[2019-04-01] MEDS: Polyethylene Glycol 3350 17 GM Packet PO SCH (09:37)
[2019-04-01] MEDS: Senokot S 8.6-50 MG TAB PO SCH (09:37)
[2019-04-01] MEDS: Ferrous Sulfate 325 MG TAB PO SCH (09:37)
[2019-04-01 10:55] LABS: Band 1 % (5-11); Eosinophils 3 % (0-10); Hemoglobin 9.2 g/dL (12.0-16.0); Lymphocytes 18 % (21-51); MDiff Complete? YES; Mean Corpuscular HGB CONC 32.6 g/dL (32.0-36.0); Mean Corpuscular Hemoglobin 29.3 pg (27.0-31.0); Mean Corpuscular Volume 89.9 fL (78.0-98.0); Mean Platelet Volume 9.5 fL (7.4-10.4); Monocytes 4 % (0-10); Myelocyte 1 % (0-0); Neutrophil 73 % (42-75); Ovalocytes SLIGHT = 2-5 cells (100X) (0-1/hpf); Platelet Clumps MARKED; Platelet Morphology Comment PLT clumps seen-ADEQ; Polychromasia SLIGHT = 2-3 cells (100X) (0-2/hpf); RBC Distribution Width 13.8 % (11.5-14.5); Red Blood Cell (RBC) Count 3.12 mill/uL (4.20-5.40); White Blood Cell (WBC) Count 10.7 thou/uL (4.8-10.8)
[2019-04-01] MEDS ORDERED: traMADol HCl 50 MG TAB PO SCH (12:00)
[2019-04-01] MEDS: HumaLOG 300 UNITS/3 ML VIAL SC PRN (12:18)
--- NOTE | 2019-04-01 13:41 | PDOC.PALCO ---
Palliative Care Consult - Consult Details Requesting Physician: Lance PALACIOS Reason for Consult: family support Family Members Present: Patient - Pertinent HPI 73 year old female who is a resident at a retirement home, [facility]. Patient fell 03/26 and was taken to [facility] emergency room for evaluation related to unwitnessed fall. Evaluation was negative for intracranial hemorrhage but identified left proximal femur fracture. Admitted for medical management and repair of hip. S/P repair for intertrochanteric femur fracture patient developed postoperative ST Elevation myocardial infarction, family has requested conservative measures to manage secondary to dementia and related decline. - Social History Smoking Status: Never smoker Smoking: no tobacco exposure Alcohol Use: none Drug Use History: none Living Situation: long-term resident - Medications MAR Reviewed: Yes - Allergies Allergies/Adverse Reactions: Allergies Allergy/AdvReac Type Severity Reaction Status Date / Time No Known Allergies Allergy Verified 11/12/18 00:08 - Subjective Awake, alert, pleasantly confused. Denies any complaints but difficult to fully know related to dementia. Patient oriented to self and . - ROS Non Response: due to mental status - Objective Vital Signs: Vital Signs - Most Recent Temp Pulse Resp BP Pulse Ox 97.7 F 80 18 125/68 95 04/01/19 12:09 04/01/19 12:09 04/01/19 12:09 04/01/19 12:09 04/01/19 12:09 Palliative Performance Scale: 40 - Physical Exam Constitutional: confusion HEENT: EOMI, moist MMs, sclera anicteric Respiratory: clear to auscultation bilateral, unlabored breathing Cardiovascular: RRR, irregular Musculoskeletal: no cyanosis, pulses present Neurology: moves all 4 limbs Skin: bruising, fragile Deviation from normal: Pleasantly confused, oriented to self and . - Problem List (1) Palliative care encounter Code(s): Z51.5 - ENCOUNTER FOR PALLIATIVE CARE Current Visit: Yes Status: Acute (2) Dementia Code(s): F03.90 - UNSPECIFIED DEMENTIA WITHOUT BEHAVIORAL DISTURBANCE Current Visit: Yes Status: Acute (3) Physical deconditioning Code(s): R53.81 - OTHER MALAISE Current Visit: Yes Status: Acute (4) Postoperative ST elevation myocardial infarction (STEMI) Code(s): QER5124 - Current Visit: Yes Status: Acute - Plan/Recommendations Plan: Met with patient and . gave short review of life and recent events. States that the family is wanting minimal interventions for patient. Should return back to [facility] today. Therapeutic Listening and emotional support. Discussed disease trajectory of dementia. [45] minutes spent on this encounter with >50% of the time in counseling and coordination of care. Thank you for this very appropriate consult.
[2019-04-01] MEDS ORDERED: Acetaminophen 500 MG TAB PO SCH (14:00)
[2019-04-01 16:05] VITALS: BP 182/85; TEMP 98
--- NOTE | 2019-04-01 19:03 | PRG ---
DATE OF SERVICE: 04/01/2019 CHIEF COMPLAINT: Left hip pain. SUBJECTIVE: Ms. Isaacs is a 73-year-old female, status post left hip intertrochanteric nailing. The patient is resting comfortably in bed. OBJECTIVE: VITAL SIGNS: Temperature 97.4, heart rate 92, respiratory rate 14, blood pressure 135/71. GENERAL: Alert and oriented female, in no acute distress. EXTREMITIES: Left lower extremity; brett are exposed. There is no purulence. No erythema noted. She is able to wiggle her toes. IMPRESSION: Left intertrochanteric hip fracture. ASSESSMENT AND PLAN: The patient will need disposition back to [facility]. She will need deep venous thrombosis prophylaxis for about 6 weeks postoperatively. The patient will be weightbearing as tolerated. Follow up with Dr. Dickson in 2 to 3 weeks for staple removal. Job ID: [id number]
[2019-04-02] MEDS ORDERED: Potassium Chloride 10 MEQ TAB PO SCH (08:00)
--- NOTE | 2019-04-02 10:17 | DIS ---
DATE OF ADMISSION: 03/26/2019 DATE OF DISCHARGE: 04/01/2019 This is Ana Zamarripa NP dictating a report for Dr. Jose. DISCHARGE ATTENDING: Dr. Jose. CONSULTS: 1. Orthopedic Surgery, Dr. Dickson. 2. Cardiology, Dr. Clakr. PROCEDURES: 1. On 03/25/2019, CT of abdomen and pelvis, impression: No evidence for acute abdominal involvement. Brain CT scan, impression: No evidence of intracranial hemorrhage or mass effect. Left hip x-ray shows comminuted displaced intertrochanteric left proximal femur fracture, femoral acetabular relationship appear maintained. Chest x-ray, no evidence for acute cardiopulmonary process. 2. On 03/26/2019, left femur x-ray, impression: Comminuted intertrochanteric fracture with associated angulation. Bone demineralization. 3. On 03/26/2019, left hip x-ray, status post open reduction and internal fixation of left intertrochanteric nail placement. 4. On 03/27/2019, cephalomedullary nailing of the left intertrochanteric hip fracture by Dr. Dickson. 5. On 03/29/2019, chest x-ray, impression: Pulmonary vascular congestion. 6. On 03/29/2019, echocardiogram, impression: Ejection fraction visually estimated at 30% to 35%. Hypokinetic motion of the inferior wall noted to the left ventricle. PRIMARY DIAGNOSES: Ground level fall, on Eliquis, left hip fracture, status post intramedullary nail, postoperative ST-elevation myocardial infarction in inferior leads. SECONDARY DIAGNOSES: History of dementia, diabetes, hypertension, chronic anemia, atrial fibrillation, and right hip fracture repair. DISCHARGE MEDICATIONS: 1. Tramadol 50 mg p.o. q.6 hours as needed for pain. 2. Acetaminophen 1000 mg p.o. q.6 hours. 3. Amiodarone 200 mg p.o. b.i.d. 4. Eliquis 5 mg p.o. daily. 5. Aspirin 81 mg p.o. daily. 6. Lipitor 10 mg p.o. at bedtime. 7. Coreg 3.125 mg b.i.d. with meals. 8. Ferrous sulfate 325 mg p.o. daily. 9. Lisinopril 40 mg p.o. daily. 10. Melatonin 3 mg p.o. at bedtime. 11. MiraLAX 17 g p.o. daily as needed. 12. Potassium chloride 10 mEq p.o. q.a.m. with meals. 13. Torsemide 10 mg p.o. daily. 14. Nicotine patch 7 mg. 15. Pioglitazone 30 mg p.o. daily. 16. Zocor 20 mg p.o. daily. HISTORY OF PRESENT ILLNESS AND HOSPITAL COURSE: This is a 73-year-old female, who came to the emergency room for evaluation of a left hip pain after she fell at [facility]. The patient has a significant history of severe dementia. The patient got up by herself and lost her balance causing her to fall onto her left side. The patient is on long-term anticoagulation for her atrial fibrillation. The patient arrived to the emergency room at her baseline mental status. The patient was evaluated and found to have a left intertrochanteric femur fracture. The patient's pain was controlled preop and postop. The patient did have severe shortness of breath postop. The patient developed postoperative ST-elevation myocardial infarction in which the family requested nonoperative and conservative management. Cardiology was consulted and medications were added. The patient was moved to the telemetry floor for continuous cardiac monitoring. The patient was diuresed and her shortness of breath resolved. The patient denied any chest pain or shortness of breath after being diuresed. Physical Therapy did work with the patient postop. There was a delay in patient going back to [facility] due to insurance approval process. The patient's blood pressure began to rise and the patient's home lisinopril dose was increased to 40 mg a day. Cardiology also added torsemide and potassium to help with her blood pressure management. On the day of discharge, the patient's exam was unremarkable including GI and cardiopulmonary exam. The patient's vital signs were stable. The patient was deemed stable for discharge back to [facility] for continue physical and occupational therapy. DISPOSITION: Stable. DISCHARGE INSTRUCTIONS: 1. Location: [facility]. 2. Diet: Diabetic diet. Glucerna supplement t.i.d. 3. Activity: Weightbearing as tolerated. 4. Followup: a. Follow up with Dr. Dickson. b. No need to follow with Trauma Services. Please call for any questions. This is just a summary of the patient's hospital course. Please see the entire medical record. Job ID: [id number] [facility]
== END 2019-04-01 16:30 | DRG 480 ==
LOC: ERS 20:15 → SURG A 03-26 00:25 → 2NO 03-29 17:59
PROVIDERS: ADMIT Surgery; ATTEND Surgery
PROC: 0QS706Z Reposition Left Upper Femur with Intramedullary Internal Fixation Device, Open Approach (ICD-10-PCS; principal; 2019-03-27)
DX: S72.142A Displaced intertrochanteric fracture of left femur, initial encounter for closed fracture (principal); I21.19 ST elevation (STEMI) myocardial infarction involving other coronary artery of inferior wall; I97.191 Other postprocedural cardiac functional disturbances following other surgery; Z51.5 Encounter for palliative care; E78.5 Hyperlipidemia, unspecified; I48.91 Unspecified atrial fibrillation; E11.9 Type 2 diabetes mellitus without complications; I11.0 Hypertensive heart disease with heart failure; I50.9 Heart failure, unspecified; G47.00 Insomnia, unspecified; W18.39XA Other fall on same level, initial encounter; G30.9 Alzheimer's disease, unspecified; F02.80 Dementia in other diseases classified elsewhere, unspecified severity, without behavioral disturbance, psychotic disturbance, mood disturbance, and anxiety; D64.9 Anemia, unspecified; F32.9 Major depressive disorder, single episode, unspecified; E78.00 Pure hypercholesterolemia, unspecified; Z79.01 Long term (current) use of anticoagulants; Y83.8 Other surgical procedures as the cause of abnormal reaction of the patient, or of later complication, without mention of misadventure at the time of the procedure
CPT/HCPCS: 36415; 36416; 51702; 70450; 71045; 74177; 76000; 80048; 80053; 81003; 81015; 82533; 82728; 83735; 83880; 84100; 84484; 85025; 85610; 85730; 87086; 93005; 93010; 93306; 94640; 94760; 96361; 96374; 96375; 99212; C1713; C1769; G0390; G0463; J0131; J0360; J0690; J1720; J1885; J1940; J2001; J2270; J2370; J2405; J2704; J3010; J3475; J7050; J7620; Q9967

== ENCOUNTER 2019-04-15 07:24 | Inpatient (IN) | payer MEDICARE, SELFPAY ==
[2019-04-15 08:08] LABS: Base Excess-Venous -3.8 mmol/L (-2.0 to 3.0); Bicarbonate (HCO3v) 20.3 mmol/L (22.0-28.0); CO2 Tension (PvCO2) 33.5 mmHg (40.0-50.0); Calcium, Ionized 0.91 mmol/L (See Comments:); Chloride 108 mmol/L (98-107); Hemoglobin - Calc 14.8 g/dL (12.0-16.0); Potassium 3.6 mmol/L (3.5-5.1); Sodium 139 mmol/L (138-145); T. Carbon Dioxide 21.3 mmol/L (22.0-28.0); vO2 Saturation-calc 79.5 % (60.0-85.0)
--- NOTE | 2019-04-15 08:14 | RAD ---
XR Chest 1 View Portable HISTORY: Dyspnea shortness of breath. COMPARISON: 03/29/2019 study. FINDINGS: Heart size is enlarged pulmonary vessels are engorged with increased parahilar lung marking s. Increased retrocardiac density could indicate some effusion. IMPRESSION: Cardiomegaly with mild pulmonary edema changes.
[2019-04-15 08:21] LABS: ALT (SGPT) Less than 7 U/L (8-55); AST (SGOT) 19 U/L (5-34); Albumin 4.3 g/dL (3.4-4.8); Alkaline Phosphatase 217 U/L (40-110); Anion Gap 20 mmol/L (10-20); BUN (Urea Nitrogen) 14 mg/dL (9.8-20.1); Bilirubin, Total 1.3 mg/dL (0.2-1.2); CK (CPK) 72 U/L (29-168); Calc. Creatinine Clearance 0 mL/min (70-130); Calcium 9.3 mg/dL (7.8-10.44); Carbon Dioxide 21 mmol/L (23-31); Chloride 105 mmol/L (98-107); Estimated GFR-MDRD 46; Globulin 3.1 g/dL (2.4-3.5); Glucose 319 mg/dL (83-110); Protein, Total 7.4 g/dL (6.0-8.3); Sodium 142 mmol/L (136-145)
[2019-04-15] MEDS ORDERED: Furosemide 40 MG/4 ML VIAL ONE ×2 (08:27→15:48)
[2019-04-15] MEDS ORDERED: Nitroglycerin 2% Ointment 1 INCH/1 GM Packet ONE (08:27)
[2019-04-15 08:33] LABS: Band 1 % (5-11); Hemoglobin 12.5 g/dL (12.0-16.0); Lymphocytes 4 % (21-51); MDiff Complete? YES; Mean Corpuscular Hemoglobin 29.2 pg (27.0-31.0); Mean Platelet Volume 8.7 fL (7.4-10.4); Monocytes 1 % (0-10); Neutrophil 94 % (42-75); Platelet Clumps MODERATE; Platelet Count 193 thou/uL (130-400); Platelet Morphology Comment Appears Adequate; Polychromasia SLIGHT = 2-3 cells (100X) (0-2/hpf); RBC Distribution Width 15.8 % (11.5-14.5); Red Blood Cell (RBC) Count 4.28 mill/uL (4.20-5.40); White Blood Cell (WBC) Count 12.5 thou/uL (4.8-10.8)
[2019-04-15 08:41] LABS: CKMB 3.4 ng/mL (0-6.6)
[2019-04-15 08:58] LABS: Bilirubin Small (Negative); Blood, Urine Trace (Negative); Glucose, Urine (Dipstick) Negative (Negative); Leukocyte Small (Negative); Nitrite Negative (Negative); Protein, Urine (Dipstick) 100 mg/dL (Neg-Trace)
[2019-04-15 09:06] LABS: Clarity Turbid (Clear)
[2019-04-15 09:07] LABS: Bacteria/HPF 4+ HPF (None Seen); RBC/HPF 0-3 HPF (0-3); Renal Epithelial 0-3 HPF (None Seen); Squamous Epithelial 0-3 HPF (0-3); Transitional Epithelial 0-3 HPF (None Seen); WBC/HPF Greater Than 50 HPF (0-3)
[2019-04-15] MEDS ORDERED: cefTRIAXone\\ROCEPHIN 2 GM VIAL ONE (09:19)
[2019-04-15] MEDS ORDERED: Vancomycin HCl 1 GM in Premix Bag 1 BAG IVPB SCH (09:45)
[2019-04-15] MEDS ORDERED: Acetaminophen 325 MG TAB PO PRN (09:46)
[2019-04-15] MEDS ORDERED: Melatonin 3 MG TAB PO PRN (09:56)
[2019-04-15] MEDS ORDERED: Dextrose 50% Abboject 50 ML SYRINGE SLOW IVP PRN (09:58)
[2019-04-15] MEDS ORDERED: Dextrose 5% in Water 1,000 ML IV PRN (09:58)
[2019-04-15] MEDS ORDERED: HumaLOG 300 UNITS/3 ML VIAL SC PRN (09:58)
--- NOTE | 2019-04-15 11:43 | HP ---
PRIMARY CARE PROVIDER: Lillian Elena MD CHIEF COMPLAINT: Difficulty breathing. HISTORY OF PRESENT ILLNESS: Ms. Isaacs is a pleasant 73-year-old lady, who was seen at [facility] on April 15, 2019 following transfer from [facility]. The patient is unable to provide any significant history. Collateral history was obtained from review of medical records and discussion with emergency room physician. She was hospitalized at this facility from March 26 to December 31 of this year for fall, left hip fracture status post intramedullary nail and postoperative ST elevation myocardial infarction and inferior leads. Family opted for conservative management of myocardial infarction at that time. She was reportedly having difficulty breathing at the [facility] today. She could not tolerate bronchodilator nebulizers. Her room air oxygen saturations were 85% and improved to 90% on 2 L of oxygen. In the emergency room, she was found to have a cloudy urine. She was also diagnosed with congestive heart failure and received furosemide. She is currently being treated with BiPAP. REVIEW OF SYSTEMS: Could not be completed secondary to the patient's cognitive status. PAST MEDICAL HISTORY: Diabetes mellitus type 2, hypertension, dementia, chronic anemia, atrial fibrillation, [id number] myocardial infarction, left hip fracture status post surgery. PAST SURGICAL HISTORY: Left hip surgery, right hip repair, right hip fixation. SOCIAL HISTORY: She lives at [facility]. Unable to obtain tobacco, alcohol, or recreational drug use. CODE STATUS: According to [facility] papers, she is full code. This will need to be clarified. FAMILY HISTORY: Could not be obtained. ALLERGIES: NO KNOWN DRUG ALLERGIES. CURRENT MEDICATIONS: These need to be clarified, but in the past she was on; 1. Tylenol. 2. Apixaban. 3. Ferrous sulfate. 4. Pioglitazone. 5. Polyethylene glycol. 6. Simvastatin. 7. Tramadol. 8. Nicotine patch. 9. Amiodarone. 10. Aspirin. 11. Lipitor. 12. Coreg. 13. Lisinopril. 14. Melatonin. 15. Potassium chloride. 16. Torsemide. PHYSICAL EXAMINATION: GENERAL: On examination, Ms. Isaacs is awake and alert, not in acute distress. VITAL SIGNS: Blood pressure is 146/71, pulse 78, respiratory rate 14, and oxygen saturation 100% on BiPAP. Temperature is 97.3 degrees Fahrenheit. EYES: No scleral icterus, no conjunctival pallor. ENT: Moist mucosal membranes. No oropharyngeal erythema or exudates. NECK: Supple, nontender, trachea is midline. She has jugular venous distention. RESPIRATORY: Accessory muscles of breathing are active. Chest wall movements are symmetric bilaterally. Lung examination reveals bilateral crackles. CARDIOVASCULAR: S1 and S2 are heard, regular. Peripheral pulses palpable. NEUROLOGIC: Full neurologic examination was not possible. There is no facial droop. Deep tendon reflexes are 2+, plantars downgoing bilaterally. MUSCULOSKELETAL: The patient is able to move all 4 extremities. SKIN: She has 1+ bilateral lower extremity edema. LYMPHATIC: No cervical lymphadenopathy. PSYCHIATRIC: Normal mood, normal affect, unable to assess orientation to person, place, or time. LABORATORY DATA: Ms. Isaacs's labs and investigations were reviewed. I reviewed her electrocardiogram, which shows normal sinus rhythm, no ST changes to suggest an acute coronary syndrome. I also reviewed her chest x-ray, which shows interstitial edema. She has leukocytosis with 12,500 white cells, normal hemoglobin, normal platelet count, normal sodium, normal potassium, elevated creatinine of 1.15, last known creatinine 0.84 on March 30, 2019, mildly elevated total bilirubin of 1.3, normal AST, elevated alkaline phosphatase of 217, it was normal at 99 on March 25, 2019, indeterminate troponin-I of 0.298 and elevated BNP of 2251. Urinalysis shows turbid urine that is positive for protein, ketones, blood and small amount of leukocyte esterase and greater than 50 wbc's per high-power field, and urine bacteria, negative for urine nitrite. Venous blood gases show pH 7.39, pCO2 of 33.5, and pO2 of 43.6. ASSESSMENT AND PLAN: Ms. Isaacs is a pleasant 73-year-old lady, who was seen at [facility] on April 15, 2019. Her problem list includes: 1. Acute hypoxic respiratory failure: Ms. Isaacs is presenting with acute hypoxic respiratory failure, most likely secondary to congestive heart failure exacerbation, although a component of pneumonia cannot be completely ruled out at this point. She has received furosemide. I will continue the same. I will check 2D echocardiogram and obtain Cardiology Service consultation for optimization of congestive heart failure medications. She has also received empiric antibiotics in the form of vancomycin and ceftriaxone, which I will continue. I will also add azithromycin to cover for respiratory infection. 2. Urinary tract infection: She also appears to have urinary tract infection. I will continue ceftriaxone. I will await urine cultures. 3. Acute kidney injury: Hold nephrotoxic medications including lisinopril, recheck creatinine level. 4. Diabetes mellitus type 2: Start the patient on Accu-Cheks and insulin sliding scale. 5. Dyslipidemia: Continue Zocor. 6. Atrial fibrillation: Continue amiodarone and apixaban. Also continue carvedilol. 7. The patient is being admitted to critical care unit on BiPAP therapy. Many thanks for allowing me to participate in your patient's care. Please feel free to contact me with any questions or concerns. LEVEL OF RISK: High. LEVEL OF COMPLEXITY: High. Job ID: [id number]
[2019-04-15] MEDS ORDERED: Azithromycin 500 MG in Sodium Chloride 0.9% 250 ML 250 ML IVPB SCH (13:00)
--- NOTE | 2019-04-15 14:40 | CON ---
DATE OF CONSULTATION: 04/15/2019 This is 50 minutes of time, of that time, greater than 50% was spent with the patient and/or the patient's unit in the hospital. REASON FOR CONSULTATION: Acute respiratory failure. HISTORY OF PRESENT ILLNESS: The patient is a 73-year-old female with advanced Alzheimer's type dementia. She was brought in from the senior living with increasing shortness of breath. She cannot give any kind of history because she is so demented. She has been treated with BiPAP and is now off that. She also received some Lasix and had profound diuresis. PAST MEDICAL HISTORY: 1. Alzheimer's disease. 2. Diabetes mellitus type 2. 3. Chronic anemia. 4. Atrial fibrillation. 5. Severe aortic stenosis by recent echo. 6. Decreased EF with ejection fraction of 30% to 35%. PAST SURGICAL HISTORY: 1. Left hip surgery. 2. Right hip repair. 3. Right hip fixation. SOCIAL HISTORY: She is a senior living resident. Does not smoke. Does not consume alcohol. Code status, not been specified yet in the past. She has been full code. REVIEW OF SYSTEMS: Cannot be obtained secondary to her demented status. PHYSICAL EXAMINATION: VITAL SIGNS: Pulse 78, blood pressure 146/71, respiratory rate 14, O2 saturation is currently 98% on room air, and temperature 97.3. GENERAL: She does wake up. She will say some inappropriate statements, but does not appear to be in any distress. HEENT: Unremarkable. NECK: No adenopathy or JVD. CARDIAC: S1 and S2 muffled by a 3/6 holosystolic murmur. LUNGS: A few inspiratory crackles in both bases. ABDOMEN: Soft and nontender. EXTREMITIES: No clubbing, cyanosis, or edema. She does have significant muscle wasting. LABORATORY DATA: Sodium 139, potassium 3.6, chloride 108, BUN 14, creatinine 1.2, and glucose 319. BNP 2251. Troponin 0.298. White blood cell count 12.5, hematocrit 40, and platelet count 193. IMAGING DATA: Her x-ray shows pulmonary edema. ASSESSMENT: 1. Congestive heart failure. 2. Severe aortic stenosis. 3. Status post respiratory failure, requiring BiPAP. RECOMMENDATIONS: I will treat this as heart failure and continue with the diuretics as you are doing. I doubt this is pneumonia, so I would scale back on her antibiotics rather rapidly. I would suggest getting Cardiology involved. I would also strongly advise working towards DNR status as her prognosis is quite poor and she is not a candidate for surgical therapy. Job ID: [id number]
[2019-04-15] MEDS: Furosemide 40 MG/4 ML VIAL SLOW IVP SCH (15:50)
[2019-04-15] MEDS: Carvedilol 3.125 MG TAB PO SCH (18:13)
--- NOTE | 2019-04-15 19:23 | CON ---
DATE OF CONSULTATION: 04/15/2019 PRIMARY PREVENTION SPECIALIST: Satya Clark MD REASON FOR CONSULTATION: Shortness of breath. HISTORY OF PRESENT ILLNESS: Ms. Isaacs is a pleasant 73-year-old white female, who comes to the hospital for difficulty breathing. She has a history of ischemic cardiomyopathy, last echo was done in March 2019 in middle of March. At that point, her EF was 30% to 35%. She had hypokinetic inferior wall and a [id number] aortic stenosis, valve area was 1 cm2, but gradients were not high enough, however, with low EF, this could be severe aortic stenosis. She had had a recent hip surgery and had complications later on with chest pain. EKG showed inferior ST elevations. The family chose to do conservative therapy at that time, given her level of dementia. She currently denies any chest pain, tightness, pressure. She came in as she was significantly more short of breath than normal. She was placed on a BiPAP, given IV Lasix in the ER and her breathing significantly improved. Currently, she is in room air saturating very well, looking comfortable. She is demented and cannot give much history, so most of the history is taken from the family. PAST MEDICAL HISTORY: 1. Type 2 diabetes. 2. Hypertension. 3. Alzheimer dementia. 4. Chronic anemia. 5. History of atrial fibrillation. 6. History of acute AR, recently inferior AR. 7. Left hip fracture recently status post hip repair. PAST SURGICAL HISTORY: 1. Left hip repair. 2. Right hip repair. 3. Right hip fixation. SOCIAL HISTORY: Lives at [facility]. No alcohol, tobacco, or drugs. REVIEW OF SYSTEMS: Unobtainable as the patient is unable to provide an accurate history. OUTPATIENT MEDICATIONS: Reviewed. Please see MAR on Ms. Isaacs's medical record. ALLERGIES: SHRIMP, OTHERWISE NO KNOWN DRUG ALLERGIES. PHYSICAL EXAMINATION: VITAL SIGNS: Temperature 98.1, pulse 84, respiratory rate 18, saturations 96% on room air, and blood pressure 176/81. GENERAL: Awake, alert, oriented to person only, in no distress. HEENT: Normocephalic and atraumatic. NECK: Supple. LUNGS: Have mild crackles at bases. CARDIOVASCULAR: S1 and S2. There is a second grade 3/6 systolic ejection murmur at the right upper sternal border. ABDOMEN: Soft. EXTREMITIES: No edema. SKIN: Warm and dry. LABORATORY DATA: Laboratory work was reviewed. White count of 12, hemoglobin 12, hematocrit 40, and platelet count of 193. Blood gas was reviewed. Chemistries were reviewed, creatinine 1.15, which is just above her baseline of 0.8. Glucose was high, BNP was 2251. Troponin was indeterminate range of 0.298. Chest x-ray on admission showed cardiomegaly with mild pulmonary edema. UA with negative nitrites, but greater than 50 white cells and 4+ bacteria. ASSESSMENT AND PLAN: 1. Acute on chronic systolic heart failure. 2. Urinary tract infection. 3. Acute kidney injury on chronic kidney disease. 4. Type 2 diabetes. PLAN: 1. Agree with continued IV diuresis. 2. Agree with narrowing down antibiotics to cover for urinary tract infection only. 3. Probably IV Lasix one more day and then switch to p.o. Lasix. 4. Family continues to Ms. Isaacs to be DNR/DNI and to be conservative with her care. I think this is very appropriate given her level of dementia. Thank you for letting us to participate in the care of your patient. We will continue to follow. Job ID: [id number]
[2019-04-15] MEDS: Amiodarone 200 MG TAB PO SCH (20:32)
[2019-04-15] MEDS: Atorvastatin Calcium 10 MG TAB PO SCH (20:32)
[2019-04-15] MEDS: Apixaban 5 MG TAB PO SCH (20:32)
[2019-04-15] MEDS ORDERED: Prevnar 13-Val Conj/PF 0.5 ML SYRINGE IM ONE (21:00)
[2019-04-15] MEDS ORDERED: FLU VACC TS2019-20(65YR UP)/PF 180 MCG/0.5 ML SYRINGE IM ONE (21:00)
[2019-04-16 05:12] LABS: Anion Gap 17 mmol/L (10-20); BUN (Urea Nitrogen) 12 mg/dL (9.8-20.1); Calc. Creatinine Clearance 44 mL/min (70-130); Calcium 8.4 mg/dL (7.8-10.44); Carbon Dioxide 25 mmol/L (23-31); Chloride 103 mmol/L (98-107); Estimated GFR-MDRD 65; Glucose 145 mg/dL (83-110); Potassium 3.1 mmol/L (3.5-5.1); Sodium 142 mmol/L (136-145)
[2019-04-16] MEDS: Furosemide 40 MG/4 ML VIAL SLOW IVP SCH ×2 (05:32→14:47)
[2019-04-16 05:35] VITALS: BMI 19.1
[2019-04-16 05:42] LABS: #Basophils 0.1 thou/uL (0.0-0.2); #Eosinphils 0.1 thou/uL (0.0-0.7); #Lymphocytes 1.3 thou/uL (1.20-3.40); #Monocytes 0.6 thou/uL (0.11-0.59); #Neutrophils 4.5 thou/uL (1.40-6.50); %Basophils 0.8 % (0.0-1.0); %Eosinophils 1.8 % (0.0-10.0); %Lymphocytes 19.5 % (21.0-51.0); %Monocytes 8.5 % (0.0-10.0); %Neutrophils 69.3 % (42.0-75.0); Hemoglobin 9.6 g/dL (12.0-16.0); MDiff Complete? YES; Mean Corpuscular HGB CONC 31.7 g/dL (32.0-36.0); Mean Corpuscular Hemoglobin 29.1 pg (27.0-31.0); Mean Corpuscular Volume 91.9 fL (78.0-98.0); Mean Platelet Volume 8.2 fL (7.4-10.4); Platelet Clumps MODERATE; Platelet Count 239 thou/uL (130-400); Platelet Morphology Comment Appears Adequate; RBC Distribution Width 15.9 % (11.5-14.5); Red Blood Cell (RBC) Count 3.28 mill/uL (4.20-5.40); White Blood Cell (WBC) Count 6.4 thou/uL (4.8-10.8)
[2019-04-16] MEDS: Ferrous Sulfate 325 MG TAB PO SCH (08:43)
[2019-04-16] MEDS: cefTRIAXone\\ROCEPHIN 1 GM in Sodium Chloride 0.9% 100 ML IVPB SCH (08:43)
[2019-04-16] MEDS: Amiodarone 200 MG TAB PO SCH ×2 (08:43→22:04)
[2019-04-16] MEDS: Apixaban 5 MG TAB PO SCH ×2 (08:43→22:04)
[2019-04-16] MEDS: Carvedilol 3.125 MG TAB PO SCH ×2 (08:43→17:39)
[2019-04-16] MEDS: Aspirin 81 mg Enteric Coated Tablet PO SCH (08:43)
--- NOTE | 2019-04-16 08:57 | PDOC.HOSPP ---
- Subjective Encounter Date: 04/16/19 (f/u heart failure) Encounter Time: 08:54 Subjective: Pt denies any pain today, is not on oxygen. - Objective Vital Signs & Weight: Vital Signs (12 hours) Temp Pulse Resp BP Pulse Ox 04/16/19 04:00 97.4 F L 84 18 182/79 H 100 Weight Weight 108 lb 4.8 oz I&O: 04/15/19 04/16/19 04/17/19 06:59 06:59 06:59 Intake Total 0 Balance 0 Result Diagrams: 04/16/19 04:22 04/16/19 04:22 Additional Labs: Accuchecks 04/16/19 04/15/19 04/15/19 05:17 20:37 18:36 POC Glucose 157 H 129 H 167 H EKG Reviewed by me: Yes (tele sinus 70-80's) Hospitalist ROS - Medication Medications: Active Medications Generic Name Dose Route Start Last Admin Trade Name Freq PRN Reason Stop Dose Admin Amiodarone HCl 200 mg 04/15/19 21:00 04/16/19 08:43 Cordarone PO 200 mg BID PAUL Administration Apixaban 5 mg 04/15/19 21:00 04/16/19 08:43 Eliquis PO 5 mg BID PAUL Administration Aspirin 81 mg 04/16/19 09:00 04/16/19 08:43 Ecotrin PO 81 mg DAILY PAUL Administration Atorvastatin Calcium 10 mg 04/15/19 21:00 04/15/19 20:32 Lipitor PO 10 mg HS PAUL Administration Carvedilol 3.125 mg 04/15/19 17:00 04/16/19 08:43 Coreg PO 3.125 mg BID-WM PAUL Administration Ferrous Sulfate 325 mg 04/16/19 09:00 04/16/19 08:43 Feosol PO 325 mg DAILY PAUL Administration Furosemide 40 mg 04/15/19 14:00 04/16/19 05:32 Lasix SLOW IVP 40 mg 0600,1400 PAUL Administration Ceftriaxone Sodium 1 gm/ 100 mls @ 200 mls/hr 04/16/19 09:00 04/16/19 08:43 Sodium Chloride IVPB 100 mls 0900 PAUL Administration Azithromycin 500 mg/ Sodium 250 mls @ 250 mls/hr 04/15/19 13:00 04/15/19 14: 31 Chloride IVPB 250 mls 1300 PAUL Administration - Exam General Appearance: NAD Heart: RRR Heart - other findings: 3/6 holosystolic murmur Respiratory - other findings: bibasilar rales right > left Gastrointestinal: soft, non-tender, non-distended, normal bowel sounds Extremities: no cyanosis, no clubbing, no edema Psychiatric - other findings: pt not oriented to place/time/situation Hosp A/P (1) Heart failure Code(s): I50.9 - HEART FAILURE, UNSPECIFIED Status: Acute Qualifiers: Heart failure type: combined systolic and diastolic Heart failure chronicity: acute on chronic Qualified Code(s): I50.43 - Acute on chronic combined systolic (congestive) and diastolic (congestive) heart failure (2) Dementia Code(s): F03.90 - UNSPECIFIED DEMENTIA WITHOUT BEHAVIORAL DISTURBANCE Status: Chronic Qualifiers: Dementia type: unspecified type (3) Acute respiratory failure with hypoxia Code(s): J96.01 - ACUTE RESPIRATORY FAILURE WITH HYPOXIA Status: Resolved (4) UTI (urinary tract infection) Status: Acute Qualifiers: Urinary tract infection type: site unspecified (5) MARIA DE JESUS (acute kidney injury) Code(s): N17.9 - ACUTE KIDNEY FAILURE, UNSPECIFIED Status: Resolved (6) Diabetes mellitus Code(s): E11.9 - TYPE 2 DIABETES MELLITUS WITHOUT COMPLICATIONS Status: Chronic Qualifiers: Diabetes mellitus type: type 2 (7) Dyslipidemia Code(s): E78.5 - HYPERLIPIDEMIA, UNSPECIFIED Status: Chronic (8) Atrial fibrillation Code(s): I48.91 - UNSPECIFIED ATRIAL FIBRILLATION Status: Chronic (9) Aortic stenosis Code(s): I35.0 - NONRHEUMATIC AORTIC (VALVE) STENOSIS Status: Chronic - Plan Appreciate Cards consult - on IV lasix Appreciate Pulm consult - abx de-escalated UTI - follow cx, continue Rocephin code status - d/w patient's and he does not think she would want CPR/ life support or that it would help her, and states he discussed with his children - updated to DNAR status. We reviewed what this means and he agrees. replace potassium dvt proph - eliquis gi prophy - not indicated code status - updated DNAR pt remains at high risk in current condition
[2019-04-16] MEDS ORDERED: Lisinopril 20 MG TAB PO SCH (09:00)
[2019-04-16] MEDS ORDERED: Potassium Chloride 20 MEQ TAB PO SCH (09:00)
[2019-04-16] MEDS ORDERED: Vancomycin HCl 750 MG in Sodium Chloride 0.9% 250 ML 250 ML IVPB SCH (10:00)
[2019-04-16] MEDS: DULoxetine 60 MG CAP PO SCH (10:29)
[2019-04-16] MEDS: Polyethylene Glycol 3350 17 GM Packet PO SCH (10:29)
--- NOTE | 2019-04-16 10:47 | PRG ---
DATE OF SERVICE: 04/16/2019 SUBJECTIVE: The patient feels better, has no complaints. OBJECTIVE: VITAL SIGNS: Temperature 97.4, pulse 84, respirations 18, O2 saturation 100%, and blood pressure 182/79. HEENT: Unremarkable. NECK: No adenopathy or JVD. LUNGS: Clear. CARDIAC: S1 and S2, regular with 3/6 systolic murmur. ABDOMEN: Soft, nontender. EXTREMITIES: No clubbing, cyanosis, or edema. ASSESSMENT: Status post congestive heart failure from diastolic heart dysfunction. I cannot quite reconcile why the most recent echo does not show aortic stenosis while pervious echos did. PLAN: She has improved with diuresis. I do not think she has any significant respiratory infection. No further Pulmonary recommendations, we will sign off. Job ID: [id number]
[2019-04-16] MEDS ORDERED: Sodium Chloride 0.9% 10 ML ONE (14:43)
--- NOTE | 2019-04-16 15:22 | PDOC.CPN ---
- Subjective Date: 04/16/19 Time: 15:20 Interval history: She is doing much better. - Review of Systems General: denies: fever/chills, weight/appetite/sleep changes, night sweats, fatigue Respiratory: denies: cough, congestion, shortness of breath, exercise intolerance Cardiovascular: denies: chest pain, palpitation, edema, paroxysmal nocturnal dyspnea, orthopnea Gastrointestinal: denies: nausea, vomiting, diarrhea, constipation, abd pain, GI bleeding Musculoskeletal: denies: pain, tenderness, stiffness, swelling, arthritis/ arthralgias Neurological: denies: numbness, syncope, seizure, weakness - Objective Allergies/Adverse Reactions: Allergies Allergy/AdvReac Type Severity Reaction Status Date / Time shrimp Allergy Mild Verified 04/15/19 18:15 Visit Medications: Current Medications Acetaminophen (Tylenol) 650 mg PO Q4H PRN PRN Reason: Headache/Fever/Mild Pain (1-3) Amiodarone HCl (Cordarone) 200 mg PO BID [facility] Last Admin: 04/16/19 08:43 Dose: 200 mg Apixaban (Eliquis) 5 mg PO BID [facility] Last Admin: 04/16/19 08:43 Dose: 5 mg Aspirin (Ecotrin) 81 mg PO DAILY [facility] Last Admin: 04/16/19 08:43 Dose: 81 mg Atorvastatin Calcium (Lipitor) 10 mg PO HS [facility] Last Admin: 04/15/19 20:32 Dose: 10 mg Carvedilol (Coreg) 3.125 mg PO BID-WM [facility] Last Admin: 04/16/19 08:43 Dose: 3.125 mg Dextrose/Water (Dextrose 50%) 25 gm SLOW IVP PRN PRN PRN Reason: Hypoglycemia Duloxetine HCl (Cymbalta) 60 mg PO DAILY [facility] Last Admin: 04/16/19 10:29 Dose: 60 mg Ferrous Sulfate (Feosol) 325 mg PO DAILY [facility] Last Admin: 04/16/19 08:43 Dose: 325 mg Glucagon (Glucagon) 1 mg IM PRN PRN PRN Reason: Hypoglycemia Ceftriaxone Sodium 1 gm/ (Sodium Chloride) 100 mls @ 200 mls/hr IVPB 0900 [facility] Last Admin: 04/16/19 08:43 Dose: 100 mls Dextrose/Water (D5w) 1,000 mls @ 0 mls/hr IV .Q0M PRN PRN Reason: Hypoglycemia Insulin Human Lispro (Humalog) 0 units SC .MILD SLIDING SCALE PRN PRN Reason: Mild Correctional Scale Last Admin: 04/16/19 12:21 Dose: 4 unit Melatonin (Melatonin) 3 mg PO HSPRN PRN PRN Reason: Insomnia Miscellaneous Medication (Pharmacy To Dose) 1 each IVPB .VANC/ABX PRN PRN Reason: Pharmacy to dose Polyethylene Glycol (Miralax) 17 gm PO DAILY [facility] Last Admin: 04/16/19 10:29 Dose: 17 gm Potassium Chloride (K-Dur) 40 meq PO [facility] Vital Signs & Weight: Vital Signs Temp Pulse Resp BP BP Pulse Ox 04/16/19 14:45 73 139/65 04/16/19 11:00 96.7 F L 77 16 140/64 92 L 04/16/19 08:40 97.9 F 77 18 196/83 H 77 L 04/16/19 04:00 97.4 F L 84 18 182/79 H 100 Admit Weight 106 lb 8 oz Weight 108 lb 4.8 oz - Physical Exam General: appears well HEENT: mucus membranes moist Neck: supple neck Cardiac: regular rate and rhythm Lungs: normal breath sounds Neuro: grossly intact Abdomen: active bowel sounds Extremities: no edema Skin: clear Musculoskeletal: no pain - Labs Result Diagrams: 04/16/19 04:22 04/16/19 04:22 Troponin/CKMB CK-MB (CK-2) 3.4 ng/mL (0-6.6) 04/15/19 07:50 Troponin I 0.298 ng/mL (< 0.028) H 04/15/19 07:50 - Telemetry Sinus rhythms and dysrhythmias: sinus rhythm - Assessment/Plan Assessment/Plan: 1. Acute on chronic systolic and diastolic heart failure. 2. Alzheimers dementia 3. Aortic stenosis. Likely in the moderate range. 4. UTI PLAN: - Switch to PO diuresis for tomorrow and back to baseline meds after that. - CV stable. - Aortic stenosis is in the mild to moderate range by valve area, gradients and velocities. If discrepancy about severity of valve stenosis exists then she would need either a NORA or a right and left heart cath. Her family is not interested in this at this time. - Continue conservative therapy. - DNR/DNI.
[2019-04-16] MEDS: Atorvastatin Calcium 10 MG TAB PO SCH (22:04)
[2019-04-17 05:52] LABS: Anion Gap 16 mmol/L (10-20); BUN (Urea Nitrogen) 15 mg/dL (9.8-20.1); Calc. Creatinine Clearance 40 mL/min (70-130); Calcium 9.2 mg/dL (7.8-10.44); Carbon Dioxide 29 mmol/L (23-31); Chloride 101 mmol/L (98-107); Estimated GFR-MDRD 57; Glucose 167 mg/dL (83-110); Potassium 3.7 mmol/L (3.5-5.1); Sodium 142 mmol/L (136-145)
[2019-04-17 06:52] LABS: Band 4 % (5-11); Hemoglobin 11.1 g/dL (12.0-16.0); Lymphocytes 22 % (21-51); MDiff Complete? YES; Mean Corpuscular HGB CONC 31.8 g/dL (32.0-36.0); Mean Corpuscular Hemoglobin 30.3 pg (27.0-31.0); Mean Corpuscular Volume 95.3 fL (78.0-98.0); Mean Platelet Volume 8.3 fL (7.4-10.4); Monocytes 9 % (0-10); Neutrophil 64 % (42-75); Platelet Count 209 thou/uL (130-400); Red Blood Cell (RBC) Count 3.67 mill/uL (4.20-5.40); White Blood Cell (WBC) Count 6.2 thou/uL (4.8-10.8)
[2019-04-17] MEDS ORDERED: Furosemide 40 MG TAB PO SCH (07:30)
[2019-04-17] MEDS ORDERED: Potassium Chloride 20 MEQ TAB PO SCH (08:00)
[2019-04-17] MEDS ORDERED: Lisinopril 5 MG TAB PO SCH (09:00)
[2019-04-17] MEDS: cefTRIAXone\\ROCEPHIN 1 GM in Sodium Chloride 0.9% 100 ML IVPB SCH (09:04)
[2019-04-17] MEDS: Ferrous Sulfate 325 MG TAB PO SCH (09:04)
[2019-04-17] MEDS: Polyethylene Glycol 3350 17 GM Packet PO SCH (09:05)
[2019-04-17] MEDS: Aspirin 81 mg Enteric Coated Tablet PO SCH (09:05)
[2019-04-17] MEDS: Carvedilol 3.125 MG TAB PO SCH (09:05)
[2019-04-17] MEDS: Apixaban 5 MG TAB PO SCH (09:05)
[2019-04-17] MEDS: Amiodarone 200 MG TAB PO SCH (09:05)
[2019-04-17] MEDS: DULoxetine 60 MG CAP PO SCH (09:05)
[2019-04-17 14:30] VITALS: BP 149/67; TEMP 98.4
--- NOTE | 2019-04-18 03:35 | DIS ---
DATE OF ADMISSION: 04/15/2019 DATE OF DISCHARGE: 04/17/2019 CONSULTANTS: 1. Dr. Gay of Cardiology. 2. Dr. Alexander of Pulmonology. MEDICATIONS: Reconciled at discharge. New medications; 1. Cefdinir 300 mg p.o. b.i.d. for a total of 4 doses. 2. Potassium chloride 20 mEq daily. 3. Lasix 40 mg daily. 4. Tylenol 650 mg p.o. q.6 hours p.r.n. 5. Tramadol 50 mg q.6 hours p.r.n. Medications discontinued are, 1. Scheduled tramadol and scheduled Tylenol, these are both changed to p.r.n. 2. Pioglitazone discontinued due to heart failure. Medications to resume, note there is no medication list from the nursing facility - she should return to the usual dosing of these medications if different than the list.; 1. Amiodarone 200 mg b.i.d. 2. Eliquis 5 mg p.o. b.i.d. 3. Aspirin 81 mg daily. 4. Carvedilol 3.125 mg b.i.d. with meals. 5. Cymbalta 60 mg daily. 6. Ferrous sulfate 325 mg daily. 7. Melatonin 3 mg at bedtime. 8. MiraLAX 17 g daily. 9. Zocor 20 mg daily. 10. Lisinopril 20 mg daily FINAL DIAGNOSES: 1. Acute hypoxic respiratory failure secondary to combined systolic and diastolic heart failure. 2. Urinary tract infection. 3. Acute kidney injury, resolved. 4. Chronic anemia. SECONDARY DIAGNOSES: 1. Type 2 diabetes. 2. Hypertension. 3. Dementia. 4. Chronic anemia. 5. Atrial fibrillation, on full anticoagulation. 6. Left hip fracture, status post surgery. 7. Dyslipidemia. HISTORY OF PRESENT ILLNESS: Ms. Isaacs is a 73-year-old female with the above medical problems, who presented to the emergency room due to difficulty breathing. Her room oxygen saturation levels were 85%, she was found to have congestive heart failure and received IV Lasix. She was admitted for further treatment, and started on BiPAP therapy. HOSPITAL COURSE: The patient has been diuresed with IV Lasix and followed by Cardiology, Dr. Gay and Dr. Robert. She has been on a beta cinthia, was on a low-dose ADINA inhibitor, and has tolerated this well. Her creatinine is normal, and she was changed over to oral Lasix today. She does have an EF of 40% to 45% and grade 2/3 diastolic dysfunction. Cardiology recommends beta-cinthia, ADINA inhibitor. The patient is on room air, breathing well and does meet criteria for discharge to home. The patient was found to have UTI with E coli and was started on ceftriaxone. She has received three doses here and will continue with two days of cefdinir as an outpatient to complete treatment for this uncomplicated UTI. The patient does have baseline dementia. She is oriented to her first name only , not to place, time, or situation. There has been no change in this. She has been kept on her usual medications. Because of the heart failure, I discontinued her pioglitazone. She is also on her medication list here as scheduled Tylenol and tramadol, I changed these over to as needed. The patient is breathing well, thus meet criteria to discharge back to her nursing facility. Her medications will need to be adjusted to meet symptomatic needs, as well as monitoring of her kidney function. PHYSICAL EXAMINATION: VITAL SIGNS: Blood pressure this morning prior to medication 180/76; of note yesterday, blood pressures were in the 130s to 140s. GENERAL: Awake, alert, answers questions. She is not in distress. LUNGS: Clear to auscultation bilateral. No audible wheezing, rhonchi, or rales. HEART: Normal S1 and S2. She has a 3/6 holosystolic murmur. ABDOMEN: Soft with present bowel sounds. Nontender, nondistended. EXTREMITIES: No clubbing, cyanosis, or edema. NEUROLOGIC: No gross deficits. PSYCH: She is oriented only to her first name. GUZMAN FINDINGS AND TEST RESULTS: Renal panel today 142, 3.7, 101, 29, 15, 0.96, 167 and blood sugars over the past 24 hours have ranged from 149 to 284. Troponin 0.298. BNP 2251. T bilirubin 1.3, AST 19, ALT less than 7, alkaline phosphatase 217, total protein 7.4, albumin 4.3. CBC; 6.2, 11.1, 34.9, 209. Urinalysis showed present protein, ketones, small bilirubin, present urobilinogen, small leukocyte esterase, greater than 50 white blood cells. Urine culture shows E coli resistant to Cipro and Levaquin, indeterminate to cefoxitin. Otherwise, sensitive to everything else tested. Echocardiogram on April 15 shows an EF of 40% to 45%, grade 2/3 diastolic dysfunction, aortic valve calcification, small pericardial effusion without tamponade and ascites, it also shows some mild inferolateral hypokinesis. Chest x-ray on April 15 shows cardiomegaly with mild pulmonary edema changes. DIET: Heart healthy, fluid restrict to 1500 mL or less per day. ACTIVITY: As tolerated. The patient does have falls precautions. FOLLOWUP: Followup needed with Dr. Mendes at the first available to review this hospitalization, the management of diabetes in the outpatient setting without pioglitazone, and to monitor kidney function. Follow up with Dr. Gay within a month to review overall management of heart failure. CODE STATUS: Do not attempt resuscitation. This was clarified here with the patient's , who states that she would not want to be on life support. All of her care has been consistent with this. DISCHARGE DISPOSITION: [facility], where the patient resides. Reviewed this hospitalization with the patient's , as well as the transfer back to [facility]. There were no questions or further needs at the end of evaluation. TIME SPENT: Total time coordinating discharge is 40 minutes. Job ID: [id number] MTDD
[2019-04-18] MEDS ORDERED: Potassium Chloride 20 MEQ TAB PO SCH (08:00)
== END 2019-04-17 15:28 | DRG 291 ==
LOC: ERS 07:24 → ERHOLD 11:32 → 2NO 13:38
PROVIDERS: ADMIT Internal Medicine; ATTEND Internal Medicine
PROC: 5A09357 Assistance with Respiratory Ventilation, Less than 24 Consecutive Hours, Continuous Positive Airway Pressure (ICD-10-PCS; principal; 2019-04-15)
DX: I13.0 Hypertensive heart and chronic kidney disease with heart failure and stage 1 through stage 4 chronic kidney disease, or unspecified chronic kidney disease (principal); J96.01 Acute respiratory failure with hypoxia; I50.43 Acute on chronic combined systolic (congestive) and diastolic (congestive) heart failure; N39.0 Urinary tract infection, site not specified; N17.9 Acute kidney failure, unspecified; I48.20 Chronic atrial fibrillation, unspecified; Z66 Do not resuscitate; E78.5 Hyperlipidemia, unspecified; F32.9 Major depressive disorder, single episode, unspecified; F17.210 Nicotine dependence, cigarettes, uncomplicated; G30.9 Alzheimer's disease, unspecified; F02.80 Dementia in other diseases classified elsewhere, unspecified severity, without behavioral disturbance, psychotic disturbance, mood disturbance, and anxiety; I35.0 Nonrheumatic aortic (valve) stenosis; I25.5 Ischemic cardiomyopathy; E11.22 Type 2 diabetes mellitus with diabetic chronic kidney disease; N18.9 Chronic kidney disease, unspecified; D63.1 Anemia in chronic kidney disease; B96.20 Unspecified Escherichia coli [E. coli] as the cause of diseases classified elsewhere; I25.2 Old myocardial infarction; Z79.82 Long term (current) use of aspirin; Z79.84 Long term (current) use of oral hypoglycemic drugs; Z79.899 Other long term (current) drug therapy
CPT/HCPCS: 36415; 36416; 51702; 71045; 80048; 80053; 81003; 81015; 82330; 82550; 82553; 82803; 83880; 84484; 85025; 87077; 87086; 87186; 93005; 93306; 93798; 94660; 96365; 96367; 96375; 99292; J0456; J0696; J1940; J3370; J3490; J7050

== ENCOUNTER 2020-01-01 09:42 | Inpatient (IN) | payer MEDICARE, MEDICAID, OTHER ==
--- NOTE | 2020-01-01 10:52 | RAD ---
CHEST 1 VIEW: HISTORY: Altered mental status. COMPARISON: 04/15/2019. FINDINGS: Hyperinflation and chronic lung changes with old granulomatous disease. No confluent pneumonia, over t edema, or pleural effusion. There is a nodular density over the right suprahilar region measuring 1.3 cm in size which was not definitely demonstrated on prior imaging. This could represent a pulmon kortney nodule. IMPRESSION: Probable right suprahilar pulmonary nodule. POS: OFF
[2020-01-01 10:59] LABS: INR-International Normal Ratio 1.1; Prothrombin Time 13.9 sec (12.0-14.7)
[2020-01-01 11:00] LABS: #Eosinphils 0.2 thou/uL (0.0-0.7); #Lymphocytes 1.6 thou/uL (1.20-3.40); #Monocytes 1.1 thou/uL (0.11-0.59); #Neutrophils 13.8 thou/uL (1.40-6.50); %Basophils 0.3 % (0.0-1.0); %Lymphocytes 9.8 % (21.0-51.0); %Monocytes 6.6 % (0.0-10.0); %Neutrophils 82.4 % (42.0-75.0); Hemoglobin 14.1 g/dL (12.0-16.0); Mean Corpuscular HGB CONC 31.5 g/dL (32.0-36.0); Mean Corpuscular Hemoglobin 30.5 pg (27.0-31.0); Mean Corpuscular Volume 96.8 fL (78.0-98.0); Mean Platelet Volume 10.3 fL (7.4-10.4); PTT 31.2 sec (22.9-36.1); Platelet Count 219 thou/uL (130-400); RBC Distribution Width 13.5 % (11.5-14.5); White Blood Cell (WBC) Count 16.7 thou/uL (4.8-10.8)
[2020-01-01] MEDS ORDERED: cefTRIAXone\\ROCEPHIN 1 GM VIAL ONE (11:14)
[2020-01-01 11:20] LABS: ALT (SGPT) 21 U/L (8-55); AST (SGOT) 22 U/L (5-34); Albumin 3.4 g/dL (3.4-4.8); Alkaline Phosphatase 140 U/L (40-110); Anion Gap 29 mmol/L (10-20); BUN (Urea Nitrogen) Greater than 125 mg/dL (9.8-20.1); Bilirubin, Total 0.4 mg/dL (0.2-1.2); Calc. Creatinine Clearance 0 mL/min (70-130); Calcium 8.5 mg/dL (7.8-10.44); Carbon Dioxide 19 mmol/L (23-31); Chloride 122 mmol/L (98-107); Estimated GFR-MDRD 5; Globulin 3.1 g/dL (2.4-3.5); Glucose 228 mg/dL (83-110); Lipase 28 U/L (8-78); Potassium 5.5 mmol/L (3.5-5.1); Protein, Total 6.5 g/dL (6.0-8.3); Sodium 164 mmol/L (136-145)
[2020-01-01] MEDS ORDERED: Vancomycin 1 GM/200 ML BAG ONE (11:33)
[2020-01-01 11:35] LABS: Bacteria/HPF 4+ HPF (None Seen); Bilirubin Negative (Negative); Blood, Urine 2+ (Negative); Clarity Extra Turbid (Clear); Glucose, Urine (Dipstick) Normal (Negative); Ketone, Urine Negative (Negative); Leukocyte 500 Leu/uL (Negative); Nitrite Negative (Negative); Protein, Urine (Dipstick) 30 mg/dL (Neg-Trace); RBC/HPF 21-50 HPF (0-3); Specific Gravity, Urine 1.019 (1.002-1.036); Squamous Epithelial 0-3 HPF (0-3); Urobilinogen Normal mg/dL (Less than 2); WBC/HPF 21-50 HPF (0-3)
[2020-01-01 11:47] LABS: CKMB 6.9 ng/mL (0-6.6)
[2020-01-01] MEDS ORDERED: Acetaminophen 650 MG Suppository PR PRN (12:22)
[2020-01-01] MEDS ORDERED: Ondansetron PF 4 MG/2 ML Vial IVP PRN (12:22)
--- NOTE | 2020-01-01 12:37 | PDOC.FPRHP ---
- History of Present Illness Chief Complaint: AMS/unresponsive History of Present Illness: Pt is a 74 yo F with a PMH of seizure disorder, Afib, aortic stenosis, DM 2, dementia, CHF, and dyslipidemia who presented from the snf for being altered and unresponsive. She has been acting "weird" for a few days as per patient's family and has stopped eating. Questioning is limited due to patient's mental status and the fact that she is at a snf and her family is not able to meet her in person at the facility because of COVID. As per patient's family, patient was on hospice in the past before the COVID pandemic, but her health was no longer declining and was taken off hospice. She has an out of hospital DNR/DNI ED Course: received 1g Rocephin, 1g Vancomycin, 30mL/kg NS bolus in the ED CXR neg UA 2+ blood, 500 leuk esterase, 21-50 WBC and RBCs, 4+ bacteria NA 164 K 5.5 Cr 8.5 - Allergies/Adverse Reactions Allergies Allergy/AdvReac Type Severity Reaction Status Date / Time shrimp Allergy Mild Verified 01/01/20 14:56 - Home Medications Medication Instructions Recorded Confirmed Type Simvastatin [Zocor] 20 mg PO DAILY 11/11/18 01/01/20 History Amiodarone [Cordarone] 200 mg PO BID tab 11/18/18 01/01/20 Rx Melatonin 3 mg PO HS PRN tab 11/18/18 01/01/20 Rx Ferrous Sulfate [Feosol] 325 mg PO DAILY 03/27/19 01/01/20 History Polyethylene Glycol 3350 [Miralax] 17 gm PO DAILY 03/27/19 01/01/20 History DULoxetine [Cymbalta] 60 mg DAILY 04/16/19 01/01/20 History Lisinopril [Zestril] 20 mg PO DAILY 04/16/19 01/01/20 History Acetaminophen [Tylenol Regular 650 mg PO Q6H PRN tab 04/17/19 01/01/20 Rx Strength] Apixaban [Eliquis] 5 mg PO BID tab 04/17/19 01/01/20 Rx Aspirin [Ecotrin Low Strength] 81 mg PO DAILY tab 04/17/19 01/01/20 Rx Carvedilol [Coreg] 3.125 mg PO BID-WM tab 04/17/19 01/01/20 Rx Cefdinir 300 mg PO Q12HR #4 capsule 04/17/19 01/01/20 Rx Furosemide [Lasix] 40 mg PO DAILY-AC tab 04/17/19 01/01/20 Rx Potassium Chloride 20 meq PO DAILY #30 tab.er.prt 04/17/19 01/01/20 Rx traMADol HCl [Tramadol HCl] 50 mg PO Q8H #15 tablet 04/17/19 01/01/20 Rx - History PMHx: seizure disorder, Afib, aortic stenosis, DM 2, dementia, CHF, dyslipidemia PSHx: broken hip 03/2019 FHx: heart disease Social: 70 years of tobacco use as per patients family no drug use, no alcohol use - Review of Systems ROS unobtainable: due to mental status - Vital signs BP: 50/20 HR: 40 Tmax: 96.4F Wt: 40kg - Physical Exam -Constitutional: patient agitated, unable to respond to questioning, cannot arouse HEENT: normocephalic and atraumatic, EOMI Neck: no JVD -Heart: bradycardic Lungs: CTAB, no respiratory distress, no wheezing Abdomen: soft, bowel sounds present Musculoskeletal: normal tone Skin: no rash/lesions, good turgor -Psychiatric: unable to assess FMR H&P: Results - Labs Result Diagrams: 01/01/20 10:35 01/01/20 10:35 Lab results: WBC 16.7 thou/uL (4.8-10.8) H 01/01/20 10:35 Hgb 14.1 g/dL (12.0-16.0) 01/01/20 10:35 Hct 44.5 % (36.0-47.0) 01/01/20 10:35 MCV 96.8 fL (78.0-98.0) 01/01/20 10:35 Plt Count 219 thou/uL (130-400) 01/01/20 10:35 Neutrophils % 82.4 % (42.0-75.0) H 01/01/20 10:35 Sodium 164 mmol/L (136-145) H* 01/01/20 10:35 Potassium 5.5 mmol/L (3.5-5.1) H 01/01/20 10:35 Chloride 122 mmol/L (98-107) H 01/01/20 10:35 Carbon Dioxide 19 mmol/L (23-31) L 01/01/20 10:35 BUN Greater than 125 mg/dL (9.8-20.1) H 01/01/20 10:35 Creatinine 8.50 mg/dL (0.6-1.1) H 01/01/20 10:35 Glucose 228 mg/dL (83-110) H 01/01/20 10:35 Lactic Acid 2.0 mmol/L (0.5-2.2) 01/01/20 10:35 Calcium 8.5 mg/dL (7.8-10.44) 01/01/20 10:35 Total Bilirubin 0.4 mg/dL (0.2-1.2) 01/01/20 10:35 AST 22 U/L (5-34) 01/01/20 10:35 ALT 21 U/L (8-55) 01/01/20 10:35 Alkaline Phosphatase 140 U/L (40-110) H 01/01/20 10:35 CK-MB (CK-2) 6.9 ng/mL (0-6.6) H* 01/01/20 10:35 B-Natriuretic Peptide 464.9 pg/mL (0-100) H 01/01/20 10:35 Serum Total Protein 6.5 g/dL (6.0-8.3) 01/01/20 10:35 Albumin 3.4 g/dL (3.4-4.8) 01/01/20 10:35 Lipase 28 U/L (8-78) 01/01/20 10:35 Urine Ketones Negative mg/dL (Negative) 01/01/20 10:58 Urine Blood 2+ (Negative) A 01/01/20 10:58 Urine Nitrite Negative (Negative) 01/01/20 10:58 Ur Leukocyte Esterase 500 Nicole/uL (Negative) A 01/01/20 10:58 Urine RBC 21-50 HPF (0-3) A 01/01/20 10:58 Urine WBC 21-50 HPF (0-3) A 01/01/20 10:58 Ur Squamous Epith Cells 0-3 HPF (0-3) 01/01/20 10:58 Urine Bacteria 4+ HPF (None Seen) A 01/01/20 10:58 - EKG Interpretation EKG: ST & T wave abnormality, consider inferior and anterolateral ischemia FMR H&P: A/P - Plan 1. Septic shock 2/2 UTI -UA suggestive of UTI, vitals unstable -Troponin and CK elevated -metabolic acidosis 2/2 septic shock with anion gap of 25 -received Abx and fluids in the ED, but family wishes to with hold treatment. No extraordinary measures 2. Seizure disorder -aware, hold home meds 3. Afib - aware, hold home meds 4. Aortic stenosis -aware 5. DM 2 -aware, hold home meds 6. Dementia -aware 7. CHF -aware, hold home meds 8. Dyslipidemia -aware, hold home meds 9. Hypernatremia -Na 164, aware -s/p 2x bolus in the ED 10. MARIA DE JESUS -2/2 septic shock and decreased input Patient has a poor prognosis and an out of hospital DNR/DNI and family wishes to stop all interventions and to initiate comfort measures. Palliative care and CM consulted, appreciate the recs. Ativan and morphine PRN. Dispo: admit to inpatient, oncology for comfort measures Fluids: KVO Diet: NPO DVT and GI ppx: not indicated FMR H&P: Upper Level - Plan Date/Time: 01/01/20 1235 IAnita, have evaluated this patient and agree with findings/plan as outlined by commander internal affairs resident. Pertinent changes/additions are listed here. HPI: 74 yo F with PMH of dementia, HF (EF 40-45%, grade 2/3 diastolic dysfunction), DM, Afib, aortic stenosis, and HLD presents from [facility] for altered mental status. Patient has been not eating for the past few days, and today was unable to eat breakfast and unable to sit up. Nursing reported stable vital signs, BS of 341. The family requested she be sent to the ED. She is at baseline AOx1. Her is her MPOA. In the ED: CXR: hyperinflation and chronic lung changes with old granulomatous disease. No pneumonia or edema. 1.3 cm nodular density/pulmonary nodule. EKG: Rate 63, NSR, LVH, ST and T wave abnormality, concern for inferior and anterolateral ischemia. Labs significant for: WBC 16.7 with left shift, Na 164, K 5.5, Chloride 122, Carbon dioxide 19, Anion gap 25, BUN >125, Cr 8.5, Est GFR 5, glucose 228, Alk phos 140, CKMB 6.9, Trop of 0.390, BNP 464, albumin 1.1. Urine showed 2+ blood, 500 leuk est, WBC 21-50, RBC 21-50, 0-3 squams, 4+ bacteria. Meds: 30 ml/kg IVF bolus, Vanc, Rocephin and family want no extraordinary measures, including CPR, ventilation, or pressors. BP 50/30s after 30 ml/kg bolus. Exam: General: Elderly cachectic female, moving around in bed, alert but not oriented, pale appearing Lungs: No wheezes or crackles Cardiac: bradycardic to 40s, systolic murmur 2/6 Abdomen: soft and NTTP Extremities: Unable to feel pulses A/P: Septic Shock 2/2 UTI -CXR clear, urine shows infection. WBC elevated. Kidneys acutely failing, Troponin and CK elevated. -Family wants no extraordinary measures, DNAR. Poor prognosis. Discussed with family who his aware, and would like antibiotic and fluids for treatment, as well as to keep patient comfortable. Palliative care consulted. -S/p vanc and Rocephin. Continue Rocephin, as Cr is now 8 -Admit to medical oncology -Palliative consulted Hypernatremia likely 2/2 Severe Dehydration -Na of 164. S/p 30 ml/kg bolus. Giving additional 20 ml/kg bolus, then NS @ MIVF rate Metabolic acidosis 2/2 septic shock -Anion gap of 25, aware NSTEMI type 2 2/2 septic shock -BNP 465, not fluid overloaded on exam. -Troponin 0.39, High -EKG shows concerning changes outline above Severe MARIA DE JESUS 2/2 septic shock -Cr 8.5, baseline ~1 -Likely patient has been ill for longer than a couple days DM2 -s/p fluid bolus -Pt is now transitioning to inpatient hospice, will DC accuchecks PCP: Mckay Diet: NPO DVT ppx: none GI ppx: none Code: DNAR: no intubation, compressions, or pressors Dispo: After initial 30 ml/kg bolus and second 20 ml/kg bolus and now MIVF, unable to record a blood pressure. Discussed inpatient hospice with family and now consulting inpatient hospice for evaluation. Stopping all antibiotics/fluids and blood draws. Goal is to keep patient comfortable.
[2020-01-01 12:42] LABS: SARS-CoV-2 NAA Rapid Test Not Detected (NotDetected)
[2020-01-01] MEDS ORDERED: Morphine 2 MG/ML SYRINGE SLOW IVP PRN (12:45)
[2020-01-01] MEDS ORDERED: Sodium Chloride 0.9% 1,000 ML IV SCH (12:45)
[2020-01-01] MEDS ORDERED: Lorazepam 0.5 MG TAB PO PRN (13:50)
[2020-01-01 14:51] VITALS: BMI 16.0
[2020-01-01] MEDS: Morphine 2 MG/ML VIAL SLOW IVP PRN ×3 (15:20→23:39)
[2020-01-01] MEDS: Lorazepam 2 MG/ML VIAL SLOW IVP PRN ×3 (15:20→23:41)
[2020-01-01 18:27] VITALS: BP 82/45
[2020-01-01 19:05] VITALS: TEMP 97.8
--- NOTE | 2020-01-02 04:09 | PDOC.EVN ---
Event Note - Event Note Event Note: Nurse called to confirm . PE: HEENT: pupils fixed and dilated Card: No pulse, no auscultated heart sounds Resp: No spontaneous respirations Neuro: No withdrawal to painful stimuli TOD: 01/02/20, 3:58am The family does not request an autopsy. Orders: 1. [id number] 2. Ok to remove all lines 3. Ok to release to cook room supervisor
--- NOTE | 2020-01-02 04:30 | HP ---
Please see the note from Dr. Llanes, for which I agree. The patient was seen, discussed, evaluated, and examined with the resident at bedside. HISTORY OF PRESENT ILLNESS: A 74-year-old with end-stage dementia whose mental status decreased over the last day or two. Family was called by the [facility] that she was not doing well. When initially evaluated, blood pressure was extremely low, systolic in the 50s and 60s, and pulse rate was low. She was found to have hyperkalemia and extreme hypernatremia with a sodium of 164. BUN was so high it was almost undetectable, creatinine was 8. It was determined by family with her end-stage dementia, that they did not want to try any heroic efforts, and so it was decided to do mostly supportive care and family knew that this is likely what is going to kill her, but did want to try IV antibiotics and IV fluids. Unclear how long it has been since she has eaten or drank. Past medical history, past social history, medications, past surgical history,and family history and review of systems are all per Dr. Llanes's history and physical. PHYSICAL EXAMINATION: VITAL SIGNS: She had pulse rate in the 40s, blood pressure 60s over 30s when I saw her in the emergency room. GENERAL: Not obtunded. She is awake, but severe dementia. Does not follow commands. Does not really give eye contact. Seems to be thrashing around in bed occasionally, but not necessarily combative. ENT: Conjunctivae not pale. Anicteric. Extremely dry mucosa. CHEST: Clear. HEART: Regular rate and rhythm. Grade 2/6 systolic murmur. ABDOMEN: Benign. EXTREMITIES: No edema. SKIN: Poor skin turgor. ASSESSMENT: 1. Sepsis, likely from urinary tract infection. 2. Severe hypernatremia. 3. Renal failure. 4. Hyperkalemia. 5. Severe dehydration. 6. End-stage dementia. PLAN: We will put her on broad-spectrum antibiotics, IV fluids, try to get her pressure up. Family is not interested in pressors or intubation, etc. We will get Palliative Care involved, potentially Hospice consult. Family understands the grave situation and that there is a very good chance that she is going to be passing away soon. Job ID: [id number]
[2020-01-02] MEDS ORDERED: cefTRIAXone\\ROCEPHIN 1 GM in Sodium Chloride 0.9% 100 ML IVPB SCH ×2 (09:00→11:00)
--- NOTE | 2020-01-02 22:35 | DIS ---
DATE OF ADMISSION: 01/01/2020 DATE OF DISCHARGE: 01/02/2020 RESIDENT: Rupinder Llanes, PGY-1. DATE OF : 01/02/2020. TIME OF : 03:58. CAUSE OF : Septic shock secondary to urinary tract infection. SECONDARY DIAGNOSES: 1. Seizure disorder. 2. Atrial fibrillation. 3. Aortic stenosis. 4. Type 2 diabetes. 5. Dementia. 6. Congestive heart failure. 7. Dyslipidemia. 8. Hypernatremia. 9. Acute kidney injury. HOSPITAL COURSE: Patient is a 74-year-old female, who presented to the ER from her retirement after being noted to be altered and unresponsive. According to staff at the retirement and her family, she has been acting "weird" for few days and she had stopped eating. Questioning of the patient is limited due to her mental status. When seen in the ED, she was very unstable with blood pressures that were hypotensive and she was bradycardic. She received 1 g of Rocephin and 1 g of vancomycin in the ER and 30 mL/kg NS bolus initially in the ED, followed by a second bolus and maintenance fluid. Her UA was significant for urinary tract infection, and multiple lab values were elevated including sodium at 164, potassium at 5.5, and a creatinine at 8.5. Initially, the patient's family informed the medical team of patient's out of hospital DNR/DNI, and the patient's wish for no extraordinary measures. It was decided that no pressors would be started, as the family viewed this as extraordinary measures. After the patient was transferred to the floor, patient's family decided that they did not want any unnecessary tests and came to the realization that prognosis was poor, and therefore did not wish to continue fluids or antibiotics, and instead wanted to pursue comfort measures. Palliative care and case management were consulted in addition to spiritual care. Comfort measures were put in place and patient seemed to be comfortable and she passed peacefully. Job ID: [id number] MTDD
== END 2020-01-02 04:00 | disposition expired | DRG 871 ==
LOC: ERS 09:42 → OBSVTOIN 12:10 → ONC 12:10
PROVIDERS: ADMIT Family Medicine; ATTEND Family Medicine
DX: A41.9 Sepsis, unspecified organism (principal); R65.21 Severe sepsis with septic shock; I21.A1 Myocardial infarction type 2; N39.0 Urinary tract infection, site not specified; N17.9 Acute kidney failure, unspecified; E87.0 Hyperosmolality and hypernatremia; I50.32 Chronic diastolic (congestive) heart failure; G47.00 Insomnia, unspecified; I11.0 Hypertensive heart disease with heart failure; G30.9 Alzheimer's disease, unspecified; F02.80 Dementia in other diseases classified elsewhere, unspecified severity, without behavioral disturbance, psychotic disturbance, mood disturbance, and anxiety; E78.00 Pure hypercholesterolemia, unspecified; F32.9 Major depressive disorder, single episode, unspecified; E87.5 Hyperkalemia; I48.91 Unspecified atrial fibrillation; Z20.828 Contact with and (suspected) exposure to other viral communicable diseases; F17.210 Nicotine dependence, cigarettes, uncomplicated; G40.909 Epilepsy, unspecified, not intractable, without status epilepticus; I35.0 Nonrheumatic aortic (valve) stenosis; E86.0 Dehydration; Z91.013 Allergy to seafood; Z79.899 Other long term (current) drug therapy
CPT/HCPCS: 36600; 51701; 71045; 80053; 81003; 81015; 82553; 83605; 83690; 83880; 84484; 85025; 85610; 85730; 87040; 87077; 87086; 87186; 93005; 96361; 96365; 96366; 96375; J0696; J2060; J2270; J3370; U0002